=== PATIENT | female | born 1960 | race African-American/Black ===

== ENCOUNTER 2017-06-29 11:21 | Inpatient (IN) | payer BC ==
[2017-06-29 11:46] VITALS: BMI 19.3
--- NOTE | 2017-06-29 13:33 | HP ---
Admission ROS [facility] Chief Complaint: I am here for rehab for further treatment. Allergies/Adverse Reactions: Allergies Allergy/AdvReac Type Severity Reaction Status Date / Time No Known Allergies Allergy Verified 06/29/17 13:10 History of Present Illness: pt is a 56yr old female with a history of crack/cocaine dependence seeking help and wants to be in rehab. Pt states she was consulted by her counselor at her [facility]. Exam Limitations: No Limitations - Ebola screening Have you traveled outside of the country in the last 21 days: No Have you had contact with anyone from an Ebola affected area: No Have you been sick,other than usual withdrawal symptoms: No Do you have a fever: No - Review of Systems Constitutional: No Symptoms Reported EENT: reports: No Symptoms Reported Respiratory: reports: No Symptoms reported Cardiac: reports: No Symptoms Reported GI: reports: No Symptoms Reported : reports: No Symptoms Reported Musculoskeletal: reports: No Symptoms Reported Integumentary: reports: No Symptoms Reported Neuro: reports: No Symptoms reported Endocrine: reports: No Symptoms Reported Hematology: reports: No Symptoms Reported Psychiatric: reports: Judgement Intact, Mood/Affect Appropiate, Orientated x3, Agitated Other Systems: Reviewed and Negative Patient History - Patient Medical History Hx Anemia: No Hx Asthma: No Hx Chronic Obstructive Pulmonary Disease (COPD): No Hx Cancer: No Hx Cardiac Disorders: No Hx Congestive Heart Failure: No Hx Hypertension: Yes Hx Hypercholesterolemia: No Hx Pacemaker: No HX Cerebrovascular Accident: No Hx Seizures: No Hx Dementia: No Hx Diabetes: No Hx Gastrointestinal Disorders: No Hx Liver Disease: No Hx Genitourinary Disorders: No Hx Sexually Transmitted Disorders: No Hx Renal Disease (ESRD): No Hx Thyroid Disease: No Hx Human Immunodeficiency Virus (HIV): No (negative) Hx Hepatitis C: Yes (received tx in 1994) Hx Depression: Yes Hx Suicide Attempt: No Hx Bipolar Disorder: No Hx Schizophrenia: No - Patient Surgical History Past Surgical History: Yes Hx Neurologic Surgery: No Hx Cataract Extraction: No Hx Cardiac Surgery: No Hx Lung Surgery: No Hx Breast Surgery: No Hx Breast Biopsy: No Hx Abdominal Surgery: No Hx Appendectomy: No Hx Cholecystectomy: No Hx Genitourinary Surgery: No Hx Section: No Hx Orthopedic Surgery: No Other Surgical History: removal of lipoma, left buttock in 1995 - PPD History Previous Implant?: Yes Documented Results: Positive w/o proof Implanted On Prior [facility] Admission?: No PPD to be Administered?: No - Reproductive History Patient is a Female of Child Bearing Age (11 -55 yrs old): No Patient : No - Smoking Cessation Smoking history: Current every day smoker Have you smoked in the past 12 months: Yes Aproximately how many cigarettes per day: 7 Hx Chewing Tobacco Use: No Initiated information on smoking cessation: Yes 'Breaking Loose' booklet given: 06/29/17 - Substance & Tx. History Hx Alcohol Use: No Hx Substance Use: Yes Substance Use Type: Cocaine Hx Substance Use Treatment: No - Substances Abused Crack Route: Smoking Frequency: 3-6 times per week Amount used: $20 Age of first use: 44 Date of Last Use: 06/28/17 Klonopin Route: Oral Frequency: 1-2 times per week Amount used: 2 tabs Age of first use: 51 Date of Last Use: 06/28/17 Family Disease History - Family Disease History Family Disease History: Diabetes: Mother (pancreatic ca), Sister, CA: Mother Admission Physical Exam [facility] - Vital Signs Vital Signs: Vital Signs - 24 hr 06/29/17 11:43 Temperature 98.7 F Pulse Rate 61 Respiratory 18 Rate Blood Pressure 131/75 - Physical General Appearance: Yes: Appropriately Dressed, Mild Distress, Anxious HEENTM: Yes: Hearing grossly Normal, Normal Voice Respiratory: Yes: Lungs Clear, Normal Breath Sounds, No Respiratory Distress Neck: Yes: No masses,lesions,Nodules Breast: Yes: Within Normal Limits Cardiology: Yes: Regular Rhythm, Regular Rate, S1, S2 Abdominal: Yes: Normal Bowel Sounds, Non Tender, Soft Genitourinary: Yes: Within Normal Limits Back: Yes: Normal Inspection Musculoskeletal: Yes: full range of Motion, Gait Steady Extremities: Yes: Normal Capillary Refill Neurological: Yes: Fully Oriented, Alert, Normal Response Integumentary: Yes: Normal Color Lymphatic: Yes: Within Normal Limits - Diagnostic (1) Crack cocaine use Current Visit: Yes Status: Chronic (2) Nicotine dependence Current Visit: Yes Status: Chronic Qualifiers: Nicotine product type: cigarettes Substance use status: uncomplicated Qualified Code(s): F17.210 - Nicotine dependence, cigarettes, uncomplicated (3) Methadone maintenance therapy patient Current Visit: Yes Status: Chronic Cleared for Admission [facility] - Detox or Rehab [facility] Level of Care: Medically Managed Claeared for Rehab Admission: Yes [facility] Breath Alcohol Content Breath Alcohol Content: 0 Urine Pregancy Test - Result Urine Test Results: Negative- NO Line Present Urine Drug Screen - Results Drug Screen Negative: No Urine Drug Screen Results: ANTONI-Cocaine, MTD-Methadone Inpatient Rehab Admission - Initial Determination Free of communicable disease: Yes Not in need of hospitalization: Yes - Rehab Admission Criteria Lacks judgement: Yes
[2017-06-29] MEDS ORDERED: P-EPHED 60MG/TRIPROLIDI 2.5MG TABLET PO PRN (13:35)
[2017-06-29] MEDS ORDERED: hydrOXYzine PAMOATE 50 MG CAPSULE (FP) PO PRN (13:35)
[2017-06-29] MEDS ORDERED: LOPERAMIDE HCL 2 MG CAPSULE PO PRN (13:35)
[2017-06-29] MEDS ORDERED: MAGNESIUM CITRATE 300 ML BOTTLE PO PRN (13:35)
[2017-06-29] MEDS ORDERED: NICOTINE POLACRILEX 4 MG GUM BUC PRN (13:35)
[2017-06-29] MEDS ORDERED: IBUPROFEN 400 MG TABLET (FP) PO PRN (13:35)
[2017-06-29] MEDS ORDERED: guaiFENesin/D-METHORPHAN HB 10 ML UNIT-DOSE CUPS PO PRN (13:35)
[2017-06-29] MEDS ORDERED: MENTHOL/PHENOL 1 EACH UD MM PRN (13:35)
[2017-06-29] MEDS ORDERED: METHADONE HCL 10 MG TABLET PO ONE (14:37)
[2017-06-29] MEDS: THIAMINE HCL 100 MG TABLET (FP) PO SCH (21:46)
[2017-06-29 22:08] LABS: HEMATOCRIT 38.8 % (32.4-45.2); HEMOGLOBIN 13.1 GM/dL (10.7-15.3); MCH 33.3 pg (25.7-33.7); MCHC 33.7 g/dl (32.0-36.0); MEAN PLT VOLUME 8.9 fl (7.5-11.1); PLATELET COUNT 264 K/MM3 (134-434); RBC 3.92 M/mm3 (3.60-5.2); RDW 13.7 % (11.6-15.6); WHITE BLOOD COUNT 6.2 K/mm3 (4.0-10.0)
[2017-06-29 22:22] LABS: URINE APPEARANCE SLCLOUDY; URINE BILIRUBIN NEGATIVE (NEGATIVE); URINE BLOOD NEGATIVE (NEGATIVE); URINE COLOR YELLOW; URINE GLUCOSE (UA) NEGATIVE (NEGATIVE); URINE KETONE NEGATIVE (NEGATIVE); URINE LEUK ESTERASE TRACE (NEGATIVE); URINE NITRITE NEGATIVE (NEGATIVE); URINE PROTEIN NEGATIVE (NEGATIVE); URINE UROBILINOGEN NEGATIVE mg/dL (0.2-1.0)
[2017-06-29 22:26] LABS: ALBUMIN 3.8 g/dl (3.4-5.0); ALK PHOS 130 U/L (45-117); ANION GAP 8 (8-16); BILIRUBIN,TOTAL 0.3 mg/dL (0.2-1.0); BLOOD UREA NITROGEN 7 mg/dL (7-18); CALCIUM 8.8 mg/dL (8.5-10.1); CHLORIDE 103 mmol/L (98-107); CO2 31 mmol/L (21-32); CREATININE 0.8 mg/dL (0.55-1.02); GLUCOSE,RANDOM 91 mg/dL (74-106); POTASSIUM 3.6 mmol/L (3.5-5.1); SGOT/AST 26 U/L (15-37); SGPT/ALT 28 U/L (12-78); SODIUM 142 mmol/L (136-145); TOT PROT 8.2 g/dl (6.4-8.2)
[2017-06-29 23:10] LABS: EPI CELLS RARE /HPF (FEW); URINE BACTERIA RARE /hpf (NONE SEEN); URINE MUCUS RARE
[2017-06-30] MEDS: METHADONE HCL 10 MG TABLET PO SCH (06:34)
--- NOTE | 2017-06-30 09:44 | EKG ---
Test Reason : Blood Pressure : / mmHG Vent. Rate : 047 BPM Atrial Rate : 047 BPM P-R Int : 232 ms QRS Dur : 130 ms QT Int : 486 ms P-R-T Axes : 067 028 -27 degrees QTc Int : 430 ms SINUS BRADYCARDIA WITH 1ST DEGREE A-V BLOCK NON-SPECIFIC INTRA-VENTRICULAR CONDUCTION BLOCK CANNOT RULE OUT SEPTAL INFARCT , AGE UNDETERMINED T WAVE ABNORMALITY, CONSIDER INFERIOR ISCHEMIA ABNORMAL ECG NO PREVIOUS ECGS AVAILABLE Confirmed by MD Arnie, Chandler ([id number]) on 06/30/2017 9:44:10 AM Referred By: Confirmed By:Chandler Gaitan MD
[2017-06-30] MEDS: amLODIPine BESYLATE 10 MG TABLET (FP) PO SCH (10:43)
[2017-06-30] MEDS: SERTRALINE HCL 50 MG TABLET (FP) PO SCH (10:43)
[2017-06-30] MEDS: NICOTINE 21 MG/24 HOURS TOPICAL PATCH TD SCH (10:43)
[2017-06-30] MEDS: PRENATAL VITAMINS W/ FOLIC ACID TABLET (FP) PO SCH (10:44)
--- NOTE | 2017-06-30 11:48 | HP ---
Psychiatrist Admission - Data Date of interview: 06/30/17 Admission source: [facility] Identifying data: This is the first admission to [address] [place] [address] rehabilitation for this 56 yo AA single mother of 6 children,resides in [facility], supported by PA. Medical History: Significant for HTN,Hep C. Psychiatric History: Reports feeling depressed on and off for a couple of years.Patient states that she had episodes of depression mostly related to drug use.She started Zoloft 50 mg po daily a few months ago prescribed by psychiatrist while in [facility] is life [facility] in [facility]. Physical/Sexual Abuse/Trauma History: denies Vital Signs: Vital Signs - 24 hr 06/29/17 06/30/17 06/30/17 15:31 00:30 03:30 Temperature 97.7 F Pulse Rate 60 Respiratory 18 17 16 Rate Blood Pressure 136/84 06/30/17 06/30/17 07:29 09:47 Temperature 98.7 F Pulse Rate 54 L 66 Respiratory 18 Rate Blood Pressure 137/84 138/83 Allergies/Adverse Reactions: Allergies Allergy/AdvReac Type Severity Reaction Status Date / Time No Known Allergies Allergy Verified 06/29/17 13:10 Date of last physical exam: 06/29/17 Concur with the findings of this exam: Yes - Substance Abuse/Tx History Hx Alcohol Use: Yes (drinking socially) Hx Substance Use: Yes (cocaine/crack since [age] yo$20 2 times a week,Benzo since 51 yo) Substance Use Type: Cocaine, Heroin, Tranquilizers Hx Substance Use Treatment: Yes (completed [facility] 4 yo,longest abstinence 3 years) Mental Status Exam - Mental Status Exam Alert and Oriented to: Time, Place, Person Cognitive Function: Grossly Intact Patient Appearance: Well Groomed Mood: Anxious Affect: Mood Congruent, Labile Patient Behavior: Cooperative Speech Pattern: Clear Voice Loudness: Normal Thought Process: Goal Oriented Thought Disorder: Not Present Hallucinations: Denies Suicidal Ideation: Denies Homicidal Ideation: Denies Insight/Judgement: Fair Sleep: Fair Appetite: Good Muscle strength/Tone: Normal Gait/Station: Normal Psychiatric Findings - Problem List ([place] 1, 2,3) (1) Crack cocaine use Current Visit: Yes Status: Chronic (2) Nicotine dependence Current Visit: Yes Status: Chronic Qualifiers: Nicotine product type: cigarettes Substance use status: uncomplicated Qualified Code(s): F17.210 - Nicotine dependence, cigarettes, uncomplicated (3) Methadone maintenance therapy patient Current Visit: Yes Status: Chronic (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
[2017-06-30] MEDS: THIAMINE HCL 100 MG TABLET (FP) PO SCH (21:35)
[2017-07-01] MEDS: METHADONE HCL 10 MG TABLET PO SCH (06:17)
[2017-07-01] MEDS: ACETAMINOPHEN 325 MG TABLET (FP) PO PRN ×2 (08:49→21:32)
[2017-07-01] MEDS: amLODIPine BESYLATE 10 MG TABLET (FP) PO SCH (10:11)
[2017-07-01] MEDS: PRENATAL VITAMINS W/ FOLIC ACID TABLET (FP) PO SCH (10:11)
[2017-07-01] MEDS: SERTRALINE HCL 50 MG TABLET (FP) PO SCH (10:11)
[2017-07-01] MEDS: NICOTINE 21 MG/24 HOURS TOPICAL PATCH TD SCH (10:11)
[2017-07-01] MEDS: THIAMINE HCL 100 MG TABLET (FP) PO SCH (21:31)
[2017-07-02] MEDS: METHADONE HCL 10 MG TABLET PO SCH (06:41)
--- NOTE | 2017-07-02 10:06 | PN ---
[facility] Progress Note (SOAP) Subjective: c/o right shoulder pain radiating to hand 2/2 arthritis, chronic neurontineffective, can not take nsaids Objective: 07/02/17 10:05 Vital Signs - 24 hr 07/02/17 07/02/17 07/02/17 03:30 07:43 09:54 Temperature 98.0 F Pulse Rate 68 48 L Respiratory 16 18 Rate Blood Pressure 162/84 153/93 Laboratory Tests 06/29/17 06/29/17 06/29/17 14:00 14:00 14:00 WBC 6.2 RBC 3.92 Hgb 13.1 Hct 38.8 MCV 99.0 H MCH 33.3 MCHC 33.7 RDW 13.7 Plt Count 264 MPV 8.9 Sodium 142 Potassium 3.6 Chloride 103 Carbon Dioxide 31 Anion Gap 8 BUN 7 Creatinine 0.8 Creat Clearance w eGFR > 60 Random Glucose 91 Calcium 8.8 Total Bilirubin 0.3 AST 26 ALT 28 Alkaline Phosphatase 130 H Total Protein 8.2 Albumin 3.8 Urine Color Urine Appearance Urine pH Ur Specific [place] Urine Protein Urine Glucose (UA) Urine Ketones Urine Blood Urine Nitrite Urine Bilirubin Urine Urobilinogen Ur Leukocyte Esterase Urine WBC (Auto) Urine RBC (Auto) Ur Epithelial Cells Urine Bacteria Urine Mucus RPR Titer Nonreactive 06/29/17 15:45 WBC RBC Hgb Hct MCV MCH MCHC RDW Plt Count MPV Sodium Potassium Chloride Carbon Dioxide Anion Gap BUN Creatinine Creat Clearance w eGFR Random Glucose Calcium Total Bilirubin AST ALT Alkaline Phosphatase Total Protein Albumin Urine Color Yellow Urine Appearance Slcloudy Urine pH 7.0 Ur Specific [place] 1.008 Urine Protein Negative Urine Glucose (UA) Negative Urine Ketones Negative Urine Blood Negative Urine Nitrite Negative Urine Bilirubin Negative Urine Urobilinogen Negative Ur Leukocyte Esterase Negative Urine WBC (Auto) <1 Urine RBC (Auto) None Ur Epithelial Cells Rare Urine Bacteria Rare Urine Mucus Rare RPR Titer Assessment: 07/02/17 10:05 start neurontin 100mg tid, titrate upwards to effect.
[2017-07-02] MEDS: amLODIPine BESYLATE 10 MG TABLET (FP) PO SCH (10:30)
[2017-07-02] MEDS: NICOTINE 21 MG/24 HOURS TOPICAL PATCH TD SCH (10:30)
[2017-07-02] MEDS: SERTRALINE HCL 50 MG TABLET (FP) PO SCH (10:30)
[2017-07-02] MEDS: PRENATAL VITAMINS W/ FOLIC ACID TABLET (FP) PO SCH (10:30)
[2017-07-02] MEDS: GABAPENTIN 100 MG CAPSULE (FP) PO SCH ×2 (13:57→21:43)
[2017-07-02] MEDS: THIAMINE HCL 100 MG TABLET (FP) PO SCH (21:43)
[2017-07-03] MEDS: METHADONE HCL 10 MG TABLET PO SCH (06:39)
[2017-07-03] MEDS: GABAPENTIN 100 MG CAPSULE (FP) PO SCH ×3 (06:39→21:44)
[2017-07-03] MEDS: PRENATAL VITAMINS W/ FOLIC ACID TABLET (FP) PO SCH (10:18)
[2017-07-03] MEDS: SERTRALINE HCL 50 MG TABLET (FP) PO SCH (10:18)
[2017-07-03] MEDS: amLODIPine BESYLATE 10 MG TABLET (FP) PO SCH (10:19)
[2017-07-03] MEDS: NICOTINE 21 MG/24 HOURS TOPICAL PATCH TD SCH (10:19)
[2017-07-03] MEDS: MAGNESIUM HYDROX 2400MG/30ML ORAL SUSPENSION 30 ML CUP PO PRN (16:26)
[2017-07-03] MEDS: THIAMINE HCL 100 MG TABLET (FP) PO SCH (21:44)
[2017-07-04] MEDS: METHADONE HCL 10 MG TABLET PO SCH (06:44)
[2017-07-04] MEDS: GABAPENTIN 100 MG CAPSULE (FP) PO SCH ×3 (06:45→21:33)
[2017-07-04] MEDS: NICOTINE 21 MG/24 HOURS TOPICAL PATCH TD SCH (10:04)
[2017-07-04] MEDS: PRENATAL VITAMINS W/ FOLIC ACID TABLET (FP) PO SCH (10:05)
[2017-07-04] MEDS: SERTRALINE HCL 50 MG TABLET (FP) PO SCH (10:05)
[2017-07-04] MEDS: amLODIPine BESYLATE 10 MG TABLET (FP) PO SCH (10:05)
[2017-07-04] MEDS: THIAMINE HCL 100 MG TABLET (FP) PO SCH (21:33)
[2017-07-05] MEDS: METHADONE HCL 10 MG TABLET PO SCH (06:20)
[2017-07-05] MEDS: GABAPENTIN 100 MG CAPSULE (FP) PO SCH ×3 (07:03→21:43)
[2017-07-05] MEDS: NICOTINE 21 MG/24 HOURS TOPICAL PATCH TD SCH (10:24)
[2017-07-05] MEDS: PRENATAL VITAMINS W/ FOLIC ACID TABLET (FP) PO SCH (10:24)
[2017-07-05] MEDS: amLODIPine BESYLATE 10 MG TABLET (FP) PO SCH (10:24)
[2017-07-05] MEDS: SERTRALINE HCL 50 MG TABLET (FP) PO SCH (10:24)
[2017-07-05] MEDS: MAGNESIUM HYDROX 2400MG/30ML ORAL SUSPENSION 30 ML CUP PO PRN (10:44)
[2017-07-05] MEDS ORDERED: PT OWN MED DRAWER 7, Y5N ONE (13:33)
[2017-07-05] MEDS: THIAMINE HCL 100 MG TABLET (FP) PO SCH (21:43)
[2017-07-06] MEDS: METHADONE HCL 10 MG TABLET PO SCH (06:25)
[2017-07-06] MEDS: GABAPENTIN 100 MG CAPSULE (FP) PO SCH ×3 (06:26→21:35)
[2017-07-06] MEDS: SERTRALINE HCL 50 MG TABLET (FP) PO SCH (10:36)
[2017-07-06] MEDS: NICOTINE 21 MG/24 HOURS TOPICAL PATCH TD SCH (10:36)
[2017-07-06] MEDS: amLODIPine BESYLATE 10 MG TABLET (FP) PO SCH (10:36)
[2017-07-06] MEDS: PRENATAL VITAMINS W/ FOLIC ACID TABLET (FP) PO SCH (10:36)
[2017-07-06] MEDS: THIAMINE HCL 100 MG TABLET (FP) PO SCH (21:35)
[2017-07-07] MEDS: METHADONE HCL 10 MG TABLET PO SCH (06:40)
[2017-07-07] MEDS: GABAPENTIN 100 MG CAPSULE (FP) PO SCH ×3 (06:41→21:38)
[2017-07-07] MEDS: PRENATAL VITAMINS W/ FOLIC ACID TABLET (FP) PO SCH (10:24)
[2017-07-07] MEDS: SERTRALINE HCL 50 MG TABLET (FP) PO SCH (10:24)
[2017-07-07] MEDS: amLODIPine BESYLATE 10 MG TABLET (FP) PO SCH (10:24)
[2017-07-07] MEDS: NICOTINE 21 MG/24 HOURS TOPICAL PATCH TD SCH (10:25)
[2017-07-07] MEDS: THIAMINE HCL 100 MG TABLET (FP) PO SCH (21:38)
[2017-07-08] MEDS: METHADONE HCL 10 MG TABLET PO SCH (06:47)
[2017-07-08] MEDS: GABAPENTIN 100 MG CAPSULE (FP) PO SCH ×3 (06:48→21:29)
[2017-07-08] MEDS: SERTRALINE HCL 50 MG TABLET (FP) PO SCH (10:21)
[2017-07-08] MEDS: PRENATAL VITAMINS W/ FOLIC ACID TABLET (FP) PO SCH (10:21)
[2017-07-08] MEDS: NICOTINE 21 MG/24 HOURS TOPICAL PATCH TD SCH (10:22)
[2017-07-08] MEDS: amLODIPine BESYLATE 10 MG TABLET (FP) PO SCH (10:22)
[2017-07-08] MEDS: THIAMINE HCL 100 MG TABLET (FP) PO SCH (21:29)
[2017-07-09] MEDS: GABAPENTIN 100 MG CAPSULE (FP) PO SCH (06:47)
[2017-07-09] MEDS: METHADONE HCL 10 MG TABLET PO SCH (06:47)
[2017-07-09] MEDS: SERTRALINE HCL 50 MG TABLET (FP) PO SCH (09:29)
[2017-07-09] MEDS: NICOTINE 21 MG/24 HOURS TOPICAL PATCH TD SCH (09:29)
[2017-07-09] MEDS: PRENATAL VITAMINS W/ FOLIC ACID TABLET (FP) PO SCH (09:29)
[2017-07-09] MEDS: amLODIPine BESYLATE 10 MG TABLET (FP) PO SCH (09:29)
[2017-07-09] MEDS: CYCLOBENZAPRINE HCL 5 MG TABLET PO SCH ×2 (13:05→21:29)
[2017-07-09] MEDS: GABAPENTIN 300 MG CAPSULE (FP) PO SCH ×2 (13:05→21:29)
[2017-07-09] MEDS: THIAMINE HCL 100 MG TABLET (FP) PO SCH (21:29)
[2017-07-10] MEDS: CYCLOBENZAPRINE HCL 5 MG TABLET PO SCH ×3 (07:03→21:27)
[2017-07-10] MEDS: GABAPENTIN 300 MG CAPSULE (FP) PO SCH ×3 (07:03→21:27)
[2017-07-10] MEDS: METHADONE HCL 10 MG TABLET PO SCH (07:03)
[2017-07-10] MEDS: PRENATAL VITAMINS W/ FOLIC ACID TABLET (FP) PO SCH (10:26)
[2017-07-10] MEDS: SERTRALINE HCL 50 MG TABLET (FP) PO SCH (10:26)
[2017-07-10] MEDS: NICOTINE 21 MG/24 HOURS TOPICAL PATCH TD SCH (10:26)
[2017-07-10] MEDS: amLODIPine BESYLATE 10 MG TABLET (FP) PO SCH (10:26)
[2017-07-10] MEDS: THIAMINE HCL 100 MG TABLET (FP) PO SCH (21:27)
[2017-07-11] MEDS: METHADONE HCL 10 MG TABLET PO SCH (06:49)
[2017-07-11] MEDS: GABAPENTIN 300 MG CAPSULE (FP) PO SCH ×3 (06:50→21:40)
[2017-07-11] MEDS: CYCLOBENZAPRINE HCL 5 MG TABLET PO SCH ×3 (06:50→21:40)
[2017-07-11] MEDS: PRENATAL VITAMINS W/ FOLIC ACID TABLET (FP) PO SCH (09:59)
[2017-07-11] MEDS: SERTRALINE HCL 50 MG TABLET (FP) PO SCH (09:59)
[2017-07-11] MEDS: amLODIPine BESYLATE 10 MG TABLET (FP) PO SCH (09:59)
[2017-07-11] MEDS: NICOTINE 21 MG/24 HOURS TOPICAL PATCH TD SCH (09:59)
[2017-07-11] MEDS: THIAMINE HCL 100 MG TABLET (FP) PO SCH (21:40)
[2017-07-12] MEDS: METHADONE HCL 10 MG TABLET PO SCH (06:46)
[2017-07-12] MEDS: GABAPENTIN 300 MG CAPSULE (FP) PO SCH ×3 (06:47→21:36)
[2017-07-12] MEDS: CYCLOBENZAPRINE HCL 5 MG TABLET PO SCH ×3 (06:47→21:36)
[2017-07-12] MEDS: NICOTINE 21 MG/24 HOURS TOPICAL PATCH TD SCH (09:48)
[2017-07-12] MEDS: amLODIPine BESYLATE 10 MG TABLET (FP) PO SCH (09:48)
[2017-07-12] MEDS: PRENATAL VITAMINS W/ FOLIC ACID TABLET (FP) PO SCH (09:48)
[2017-07-12] MEDS: SERTRALINE HCL 50 MG TABLET (FP) PO SCH (09:48)
[2017-07-12] MEDS: MAG HYDROX/AL HYDROX/SIMETH 30 ML UNIT-DOSE CUP PO PRN ×2 (11:56→21:43)
[2017-07-12] MEDS: THIAMINE HCL 100 MG TABLET (FP) PO SCH (21:36)
[2017-07-13] MEDS ORDERED: METHADONE HCL 10 MG TABLET PO SCH (06:00)
[2017-07-13] MEDS: GABAPENTIN 300 MG CAPSULE (FP) PO SCH ×2 (06:46→13:27)
[2017-07-13] MEDS: CYCLOBENZAPRINE HCL 5 MG TABLET PO SCH ×2 (06:46→13:27)
[2017-07-13 07:31] VITALS: TEMP 97.8
[2017-07-13 09:24] VITALS: BP 100/72; PULSE 75
[2017-07-13] MEDS: NICOTINE 21 MG/24 HOURS TOPICAL PATCH TD SCH (10:11)
[2017-07-13] MEDS: SERTRALINE HCL 50 MG TABLET (FP) PO SCH (10:11)
[2017-07-13] MEDS: PRENATAL VITAMINS W/ FOLIC ACID TABLET (FP) PO SCH (10:11)
[2017-07-13] MEDS: amLODIPine BESYLATE 10 MG TABLET (FP) PO SCH (10:11)
--- NOTE | 2017-07-13 14:14 | PN ---
[facility] Progress Note Note: Informed by nursing staff that patient wants to leave today instead of tomorrow which is her scheduled discharge date. Reportedly she is stable for discharge. Discharge order place and Script for 30 days of Zoloft 50 mg po daily electronically transferred to [facility] at [address] [place] [id number]
== END 2017-07-13 14:42 | disposition home or self-care (01) | DRG 772 ==
LOC: YASAS 11:21 → Y3E 13:57
PROVIDERS: ADMIT Internal Medicine; ATTEND Psychiatry & Neurology Psychiatry
PROC: HZ42ZZZ Group Counseling for Substance Abuse Treatment, Cognitive-Behavioral (ICD-10-PCS; principal; 2017-06-29)
DX: F13.20 Sedative, hypnotic or anxiolytic dependence, uncomplicated (principal); F11.20 Opioid dependence, uncomplicated; F14.90 Cocaine use, unspecified, uncomplicated; F19.24 Other psychoactive substance dependence with psychoactive substance-induced mood disorder; M13.811 Other specified arthritis, right shoulder; G89.29 Other chronic pain; I10 Essential (primary) hypertension; B18.2 Chronic viral hepatitis C
CPT/HCPCS: 36415; 71046-TC; 80053; 81003; 81015; 85027; 86593; 93005; 93010

== ENCOUNTER 2020-09-25 12:14 | Inpatient (IN) | payer BC ==
[2020-09-25 15:37] VITALS: BMI 18.3
[2020-09-25] MEDS ORDERED: LOPERAMIDE HCL 2 MG CAPSULE PO PRN (16:34)
[2020-09-25] MEDS ORDERED: MAGNESIUM CITRATE 300 ML BOTTLE PO PRN (16:34)
[2020-09-25] MEDS ORDERED: IBUPROFEN 400 MG TABLET (FP) PO PRN (16:34)
[2020-09-25] MEDS ORDERED: P-EPHED 60MG/TRIPROLIDI 2.5MG TABLET PO PRN (16:34)
[2020-09-25] MEDS ORDERED: guaiFENesin 200 MG/10 ML 10 ML UNIT-DOSE CUPS PO PRN (16:34)
[2020-09-25] MEDS ORDERED: ACETAMINOPHEN 325 MG TABLET (FP) PO PRN (16:34)
[2020-09-25] MEDS ORDERED: MAGNESIUM HYDROX 2400MG/30ML ORAL SUSPENSION 30 ML CUP PO PRN (16:34)
[2020-09-25] MEDS ORDERED: NICOTINE POLACRILEX 2 MG GUM BC PRN (16:34)
[2020-09-25] MEDS ORDERED: MAG HYDROX/AL HYDROX/SIMETH 30 ML UNIT-DOSE CUP PO PRN (16:34)
[2020-09-25] MEDS ORDERED: hydrOXYzine PAMOATE 25 MG CAPSULE (FP) PO SCH (18:00)
[2020-09-25] MEDS: NICOTINE 14 MG/24 HOURS TOPICAL PATCH TD SCH (18:07)
[2020-09-25] MEDS: MELATONIN 5 MG TABLETS PO SCH (22:02)
[2020-09-25] MEDS: THIAMINE HCL 100 MG TABLET (FP) PO SCH (22:02)
[2020-09-25] MEDS: GABAPENTIN 300 MG CAPSULE PO SCH (22:04)
[2020-09-26] MEDS ORDERED: METHADONE HCL 10 MG TABLET PO SCH (07:30)
[2020-09-26] MEDS ORDERED: METHADONE HCL 40 MG DISPERSABLE TABLET ONE (07:43)
[2020-09-26] MEDS ORDERED: METHADONE HCL 10 MG TABLET ONE (07:43)
[2020-09-26] MEDS: METHADONE 80 MG, METHADONE 20 MG PO SCH (07:51)
[2020-09-26] MEDS ORDERED: NICOTINE 7 MG/24 HOURS TOPICAL PATCH TD SCH (10:00)
[2020-09-26 10:34] LABS: HEMATOCRIT 36.9 % (32.4-45.2); HEMOGLOBIN 12.5 GM/dL (10.7-15.3); MCH 34.5 pg (25.7-33.7); MEAN CELL VOLUME 101.6 fl (80-96); MEAN PLT VOLUME 9.9 fl (7.5-11.1); PLATELET COUNT 220 K/MM3 (134-434); RBC 3.64 M/mm3 (3.60-5.2); RDW 14.6 % (11.6-15.6); WHITE BLOOD COUNT 4.6 K/mm3 (4.0-10.0)
[2020-09-26] MEDS: PANTOPRAZOLE 20 MG TABLET PO SCH (10:41)
[2020-09-26] MEDS: ASPIRIN 81 MG CHEWABLE TABLETS PO SCH (10:41)
[2020-09-26] MEDS: amLODIPine BESYLATE 10 MG TABLET (FP) PO SCH (10:41)
[2020-09-26] MEDS: PRENATAL VITAMINS W/ FOLIC ACID TABLET (FP) PO SCH (10:41)
[2020-09-26] MEDS: NICOTINE 14 MG/24 HOURS TOPICAL PATCH TD SCH (10:41)
[2020-09-26 10:46] LABS: ALBUMIN 3.1 g/dl (3.4-5.0); BLOOD UREA NITROGEN 24.3 mg/dL (7-18); CALCIUM 9.2 mg/dL (8.5-10.1)
[2020-09-26 10:49] LABS: CREATININE 0.9 mg/dL (0.55-1.3)
[2020-09-26 10:51] LABS: TOT PROT 6.9 g/dl (6.4-8.2)
[2020-09-26 10:54] LABS: BILIRUBIN,TOTAL 0.3 mg/dL (0.2-1)
[2020-09-26] MEDS: GABAPENTIN 300 MG CAPSULE PO SCH (21:30)
[2020-09-26] MEDS: THIAMINE HCL 100 MG TABLET (FP) PO SCH (21:31)
[2020-09-26] MEDS: MELATONIN 5 MG TABLETS PO SCH (21:31)
[2020-09-27] MEDS ORDERED: METHADONE HCL 10 MG TABLET ONE (03:31)
[2020-09-27] MEDS ORDERED: METHADONE HCL 40 MG DISPERSABLE TABLET ONE (03:31)
[2020-09-27] MEDS: METHADONE 80 MG, METHADONE 20 MG PO SCH (06:11)
[2020-09-27] MEDS: PRENATAL VITAMINS W/ FOLIC ACID TABLET (FP) PO SCH (09:58)
[2020-09-27] MEDS: amLODIPine BESYLATE 10 MG TABLET (FP) PO SCH (09:59)
[2020-09-27] MEDS: ASPIRIN 81 MG CHEWABLE TABLETS PO SCH (09:59)
[2020-09-27] MEDS: SERTRALINE HCL 50 MG TABLET (FP) PO SCH (09:59)
[2020-09-27] MEDS: NICOTINE 14 MG/24 HOURS TOPICAL PATCH TD SCH (10:00)
[2020-09-27] MEDS: PANTOPRAZOLE 20 MG TABLET PO SCH (10:00)
[2020-09-27] MEDS: GABAPENTIN 300 MG CAPSULE PO SCH (21:39)
[2020-09-27] MEDS: MELATONIN 5 MG TABLETS PO SCH (21:39)
[2020-09-27] MEDS: THIAMINE HCL 100 MG TABLET (FP) PO SCH (21:39)
[2020-09-28] MEDS ORDERED: METHADONE HCL 40 MG DISPERSABLE TABLET ONE (03:29)
[2020-09-28] MEDS ORDERED: METHADONE HCL 10 MG TABLET ONE (03:29)
[2020-09-28] MEDS: METHADONE 80 MG, METHADONE 20 MG PO SCH (06:25)
[2020-09-28] MEDS: ASPIRIN 81 MG CHEWABLE TABLETS PO SCH (11:55)
[2020-09-28] MEDS: NICOTINE 14 MG/24 HOURS TOPICAL PATCH TD SCH (11:55)
[2020-09-28] MEDS: amLODIPine BESYLATE 10 MG TABLET (FP) PO SCH (11:56)
[2020-09-28] MEDS: PANTOPRAZOLE 20 MG TABLET PO SCH (11:57)
[2020-09-28] MEDS: PRENATAL VITAMINS W/ FOLIC ACID TABLET (FP) PO SCH (11:57)
[2020-09-28] MEDS: SERTRALINE HCL 50 MG TABLET (FP) PO SCH (11:58)
[2020-09-28 16:23] LABS: PH,URINE 5.5 (5.0-8.0); URINE APPEARANCE CLEAR; URINE BILIRUBIN NEGATIVE (NEGATIVE); URINE COLOR YELLOW; URINE GLUCOSE (UA) NEGATIVE (NEGATIVE); URINE KETONE NEGATIVE (NEGATIVE); URINE LEUK ESTERASE NEGATIVE (NEGATIVE); URINE NITRITE NEGATIVE (NEGATIVE); URINE PROTEIN NEGATIVE (NEGATIVE)
[2020-09-28] MEDS: THIAMINE HCL 100 MG TABLET (FP) PO SCH (21:35)
[2020-09-28] MEDS: GABAPENTIN 300 MG CAPSULE PO SCH (21:35)
[2020-09-28] MEDS: MELATONIN 5 MG TABLETS PO SCH (21:36)
[2020-09-29] MEDS ORDERED: METHADONE HCL 40 MG DISPERSABLE TABLET ONE (05:27)
[2020-09-29] MEDS ORDERED: METHADONE HCL 10 MG TABLET ONE (05:27)
[2020-09-29] MEDS: METHADONE 80 MG, METHADONE 20 MG PO SCH (06:09)
[2020-09-29] MEDS: PRENATAL VITAMINS W/ FOLIC ACID TABLET (FP) PO SCH (10:02)
[2020-09-29] MEDS: SERTRALINE HCL 50 MG TABLET (FP) PO SCH (10:02)
[2020-09-29] MEDS: ASPIRIN 81 MG CHEWABLE TABLETS PO SCH (10:02)
[2020-09-29] MEDS: NICOTINE 14 MG/24 HOURS TOPICAL PATCH TD SCH (10:03)
[2020-09-29] MEDS: PANTOPRAZOLE 20 MG TABLET PO SCH (10:03)
[2020-09-29] MEDS: amLODIPine BESYLATE 10 MG TABLET (FP) PO SCH (10:03)
[2020-09-29] MEDS: busPIRone HCL 5 MG TABLET PO PRN (10:05)
[2020-09-29] MEDS: GABAPENTIN 300 MG CAPSULE PO SCH (21:03)
[2020-09-29] MEDS: THIAMINE HCL 100 MG TABLET (FP) PO SCH (21:03)
[2020-09-29] MEDS: MELATONIN 5 MG TABLETS PO SCH (21:03)
[2020-09-30] MEDS ORDERED: METHADONE HCL 10 MG TABLET ONE (03:23)
[2020-09-30] MEDS ORDERED: METHADONE HCL 40 MG DISPERSABLE TABLET ONE (03:24)
[2020-09-30] MEDS: METHADONE 80 MG, METHADONE 20 MG PO SCH (06:16)
[2020-09-30] MEDS: busPIRone HCL 5 MG TABLET PO PRN ×2 (06:16→21:11)
[2020-09-30] MEDS: PRENATAL VITAMINS W/ FOLIC ACID TABLET (FP) PO SCH (10:24)
[2020-09-30] MEDS: PANTOPRAZOLE 20 MG TABLET PO SCH (10:25)
[2020-09-30] MEDS: ASPIRIN 81 MG CHEWABLE TABLETS PO SCH (10:25)
[2020-09-30] MEDS: amLODIPine BESYLATE 10 MG TABLET (FP) PO SCH (10:25)
[2020-09-30] MEDS: NICOTINE 14 MG/24 HOURS TOPICAL PATCH TD SCH (10:25)
[2020-09-30] MEDS: SERTRALINE HCL 50 MG TABLET (FP) PO SCH (10:26)
[2020-09-30] MEDS: THIAMINE HCL 100 MG TABLET (FP) PO SCH (21:10)
[2020-09-30] MEDS: MELATONIN 5 MG TABLETS PO SCH (21:11)
[2020-09-30] MEDS: GABAPENTIN 300 MG CAPSULE PO SCH (21:11)
[2020-10-01] MEDS ORDERED: METHADONE HCL 10 MG TABLET ONE (03:42)
[2020-10-01] MEDS ORDERED: METHADONE HCL 40 MG DISPERSABLE TABLET ONE (03:42)
[2020-10-01] MEDS: busPIRone HCL 5 MG TABLET PO PRN (06:09)
[2020-10-01] MEDS: METHADONE 80 MG, METHADONE 20 MG PO SCH (06:10)
[2020-10-01] MEDS: ASPIRIN 81 MG CHEWABLE TABLETS PO SCH (09:52)
[2020-10-01] MEDS: PRENATAL VITAMINS W/ FOLIC ACID TABLET (FP) PO SCH (09:52)
[2020-10-01] MEDS: amLODIPine BESYLATE 10 MG TABLET (FP) PO SCH (09:52)
[2020-10-01] MEDS: PANTOPRAZOLE 20 MG TABLET PO SCH (09:53)
[2020-10-01] MEDS: NICOTINE 14 MG/24 HOURS TOPICAL PATCH TD SCH (09:53)
[2020-10-01] MEDS: SERTRALINE HCL 50 MG TABLET (FP) PO SCH (09:53)
[2020-10-01] MEDS: MELATONIN 5 MG TABLETS PO SCH (21:11)
[2020-10-01] MEDS: THIAMINE HCL 100 MG TABLET (FP) PO SCH (21:11)
[2020-10-01] MEDS: GABAPENTIN 300 MG CAPSULE PO SCH (21:12)
[2020-10-02] MEDS ORDERED: METHADONE HCL 10 MG TABLET ONE (05:14)
[2020-10-02] MEDS ORDERED: METHADONE HCL 40 MG DISPERSABLE TABLET ONE (05:16)
[2020-10-02] MEDS: METHADONE 80 MG, METHADONE 20 MG PO SCH (06:40)
[2020-10-02] MEDS: ASPIRIN 81 MG CHEWABLE TABLETS PO SCH (10:00)
[2020-10-02] MEDS: amLODIPine BESYLATE 10 MG TABLET (FP) PO SCH (10:00)
[2020-10-02] MEDS: SERTRALINE HCL 50 MG TABLET (FP) PO SCH (10:00)
[2020-10-02] MEDS: PANTOPRAZOLE 20 MG TABLET PO SCH (10:01)
[2020-10-02] MEDS: PRENATAL VITAMINS W/ FOLIC ACID TABLET (FP) PO SCH (10:01)
[2020-10-02] MEDS: NICOTINE 14 MG/24 HOURS TOPICAL PATCH TD SCH (10:01)
[2020-10-02] MEDS: THIAMINE HCL 100 MG TABLET (FP) PO SCH (21:12)
[2020-10-02] MEDS: MELATONIN 5 MG TABLETS PO SCH (21:12)
[2020-10-02] MEDS: busPIRone HCL 5 MG TABLET PO PRN (21:13)
[2020-10-02] MEDS: GABAPENTIN 300 MG CAPSULE PO SCH (21:13)
[2020-10-03] MEDS ORDERED: METHADONE HCL 10 MG TABLET ONE (06:01)
[2020-10-03] MEDS ORDERED: METHADONE HCL 40 MG DISPERSABLE TABLET ONE (06:01)
[2020-10-03] MEDS: METHADONE 80 MG, METHADONE 20 MG PO SCH (06:11)
[2020-10-03] MEDS: NICOTINE 14 MG/24 HOURS TOPICAL PATCH TD SCH (09:56)
[2020-10-03] MEDS: PRENATAL VITAMINS W/ FOLIC ACID TABLET (FP) PO SCH (09:56)
[2020-10-03] MEDS: ASPIRIN 81 MG CHEWABLE TABLETS PO SCH (09:57)
[2020-10-03] MEDS: SERTRALINE HCL 50 MG TABLET (FP) PO SCH (09:57)
[2020-10-03] MEDS: PANTOPRAZOLE 20 MG TABLET PO SCH (09:57)
[2020-10-03] MEDS: amLODIPine BESYLATE 10 MG TABLET (FP) PO SCH (09:57)
[2020-10-03] MEDS: busPIRone HCL 5 MG TABLET PO PRN ×2 (09:58→21:05)
[2020-10-03] MEDS: MELATONIN 5 MG TABLETS PO SCH (21:04)
[2020-10-03] MEDS: THIAMINE HCL 100 MG TABLET (FP) PO SCH (21:04)
[2020-10-03] MEDS: GABAPENTIN 300 MG CAPSULE PO SCH (21:04)
[2020-10-04] MEDS ORDERED: METHADONE HCL 10 MG TABLET ONE (03:43)
[2020-10-04] MEDS ORDERED: METHADONE HCL 40 MG DISPERSABLE TABLET ONE (03:43)
[2020-10-04] MEDS: busPIRone HCL 5 MG TABLET PO PRN (06:23)
[2020-10-04] MEDS: METHADONE 80 MG, METHADONE 20 MG PO SCH (06:23)
[2020-10-04] MEDS: PRENATAL VITAMINS W/ FOLIC ACID TABLET (FP) PO SCH (10:00)
[2020-10-04] MEDS: SERTRALINE HCL 50 MG TABLET (FP) PO SCH (10:00)
[2020-10-04] MEDS: NICOTINE 14 MG/24 HOURS TOPICAL PATCH TD SCH (10:00)
[2020-10-04] MEDS: amLODIPine BESYLATE 10 MG TABLET (FP) PO SCH (10:00)
[2020-10-04] MEDS: ASPIRIN 81 MG CHEWABLE TABLETS PO SCH (10:00)
[2020-10-04] MEDS: PANTOPRAZOLE 20 MG TABLET PO SCH (10:00)
[2020-10-04] MEDS ORDERED: PT OWN MED DRAWER 7, Y5N ONE (10:17)
[2020-10-04] MEDS: GABAPENTIN 300 MG CAPSULE PO SCH (21:01)
[2020-10-04] MEDS: THIAMINE HCL 100 MG TABLET (FP) PO SCH (21:01)
[2020-10-04] MEDS: MELATONIN 5 MG TABLETS PO SCH (21:01)
[2020-10-05] MEDS ORDERED: METHADONE HCL 10 MG TABLET ONE (03:26)
[2020-10-05] MEDS ORDERED: METHADONE HCL 40 MG DISPERSABLE TABLET ONE (03:27)
[2020-10-05] MEDS: METHADONE 80 MG, METHADONE 20 MG PO SCH (06:15)
[2020-10-05] MEDS: busPIRone HCL 5 MG TABLET PO PRN (06:15)
[2020-10-05] MEDS: ASPIRIN 81 MG CHEWABLE TABLETS PO SCH (09:52)
[2020-10-05] MEDS: SERTRALINE HCL 50 MG TABLET (FP) PO SCH (09:52)
[2020-10-05] MEDS: PRENATAL VITAMINS W/ FOLIC ACID TABLET (FP) PO SCH (09:52)
[2020-10-05] MEDS: amLODIPine BESYLATE 10 MG TABLET (FP) PO SCH (09:52)
[2020-10-05] MEDS: PANTOPRAZOLE 20 MG TABLET PO SCH (09:53)
[2020-10-05] MEDS: NICOTINE 14 MG/24 HOURS TOPICAL PATCH TD SCH (09:53)
[2020-10-05] MEDS: THIAMINE HCL 100 MG TABLET (FP) PO SCH (21:40)
[2020-10-05] MEDS: MELATONIN 5 MG TABLETS PO SCH (21:41)
[2020-10-05] MEDS: GABAPENTIN 300 MG CAPSULE PO SCH (21:41)
[2020-10-06] MEDS ORDERED: METHADONE HCL 40 MG DISPERSABLE TABLET ONE (03:56)
[2020-10-06] MEDS ORDERED: METHADONE HCL 10 MG TABLET ONE (03:56)
[2020-10-06] MEDS: busPIRone HCL 5 MG TABLET PO PRN (06:23)
[2020-10-06] MEDS: METHADONE 80 MG, METHADONE 20 MG PO SCH (06:23)
[2020-10-06] MEDS: SERTRALINE HCL 50 MG TABLET (FP) PO SCH (09:43)
[2020-10-06] MEDS: PRENATAL VITAMINS W/ FOLIC ACID TABLET (FP) PO SCH (09:43)
[2020-10-06] MEDS: amLODIPine BESYLATE 10 MG TABLET (FP) PO SCH (09:43)
[2020-10-06] MEDS: ASPIRIN 81 MG CHEWABLE TABLETS PO SCH (09:43)
[2020-10-06] MEDS: NICOTINE 14 MG/24 HOURS TOPICAL PATCH TD SCH (09:44)
[2020-10-06] MEDS: PANTOPRAZOLE 20 MG TABLET PO SCH (09:44)
[2020-10-06] MEDS: THIAMINE HCL 100 MG TABLET (FP) PO SCH (21:30)
[2020-10-06] MEDS: GABAPENTIN 300 MG CAPSULE PO SCH (21:30)
[2020-10-06] MEDS: MELATONIN 5 MG TABLETS PO SCH (21:30)
[2020-10-07] MEDS ORDERED: METHADONE HCL 10 MG TABLET ONE (03:26)
[2020-10-07] MEDS ORDERED: METHADONE HCL 40 MG DISPERSABLE TABLET ONE (03:26)
[2020-10-07] MEDS: METHADONE 80 MG, METHADONE 20 MG PO SCH (06:23)
[2020-10-07] MEDS: ASPIRIN 81 MG CHEWABLE TABLETS PO SCH (10:18)
[2020-10-07] MEDS: amLODIPine BESYLATE 10 MG TABLET (FP) PO SCH (10:18)
[2020-10-07] MEDS: busPIRone HCL 5 MG TABLET PO PRN (10:19)
[2020-10-07] MEDS: PRENATAL VITAMINS W/ FOLIC ACID TABLET (FP) PO SCH (10:19)
[2020-10-07] MEDS: NICOTINE 14 MG/24 HOURS TOPICAL PATCH TD SCH (10:19)
[2020-10-07] MEDS: SERTRALINE HCL 50 MG TABLET (FP) PO SCH (10:19)
[2020-10-07] MEDS: PANTOPRAZOLE 20 MG TABLET PO SCH (10:19)
[2020-10-07] MEDS: MELATONIN 5 MG TABLETS PO SCH (21:55)
[2020-10-07] MEDS: THIAMINE HCL 100 MG TABLET (FP) PO SCH (21:55)
[2020-10-07] MEDS: GABAPENTIN 300 MG CAPSULE PO SCH (21:55)
[2020-10-08] MEDS ORDERED: METHADONE HCL 40 MG DISPERSABLE TABLET ONE (06:26)
[2020-10-08] MEDS ORDERED: METHADONE HCL 10 MG TABLET ONE (06:26)
[2020-10-08] MEDS: METHADONE 80 MG, METHADONE 20 MG PO SCH (06:27)
[2020-10-08] MEDS: busPIRone HCL 5 MG TABLET PO PRN (06:27)
[2020-10-08] MEDS: PRENATAL VITAMINS W/ FOLIC ACID TABLET (FP) PO SCH (10:21)
[2020-10-08] MEDS: PANTOPRAZOLE 20 MG TABLET PO SCH (10:21)
[2020-10-08] MEDS: amLODIPine BESYLATE 10 MG TABLET (FP) PO SCH (10:21)
[2020-10-08] MEDS: ASPIRIN 81 MG CHEWABLE TABLETS PO SCH (10:21)
[2020-10-08] MEDS: NICOTINE 14 MG/24 HOURS TOPICAL PATCH TD SCH (10:22)
[2020-10-08] MEDS: SERTRALINE HCL 50 MG TABLET (FP) PO SCH (10:24)
[2020-10-08] MEDS: MELATONIN 5 MG TABLETS PO SCH (21:17)
[2020-10-08] MEDS: THIAMINE HCL 100 MG TABLET (FP) PO SCH (21:17)
[2020-10-08] MEDS: GABAPENTIN 300 MG CAPSULE PO SCH (21:17)
[2020-10-09] MEDS ORDERED: METHADONE HCL 10 MG TABLET ONE (03:20)
[2020-10-09] MEDS ORDERED: METHADONE HCL 40 MG DISPERSABLE TABLET ONE (03:20)
[2020-10-09] MEDS: busPIRone HCL 5 MG TABLET PO PRN ×2 (06:11→21:53)
[2020-10-09] MEDS: METHADONE 80 MG, METHADONE 20 MG PO SCH (06:11)
[2020-10-09 06:55] VITALS: TEMP 97.7
[2020-10-09] MEDS: PRENATAL VITAMINS W/ FOLIC ACID TABLET (FP) PO SCH (10:04)
[2020-10-09] MEDS: amLODIPine BESYLATE 10 MG TABLET (FP) PO SCH (10:04)
[2020-10-09] MEDS: PANTOPRAZOLE 20 MG TABLET PO SCH (10:05)
[2020-10-09] MEDS: NICOTINE 14 MG/24 HOURS TOPICAL PATCH TD SCH (10:05)
[2020-10-09] MEDS: SERTRALINE HCL 50 MG TABLET (FP) PO SCH (10:05)
[2020-10-09] MEDS: ASPIRIN 81 MG CHEWABLE TABLETS PO SCH (10:05)
[2020-10-09] MEDS: GABAPENTIN 300 MG CAPSULE PO SCH (21:52)
[2020-10-09] MEDS: THIAMINE HCL 100 MG TABLET (FP) PO SCH (21:52)
[2020-10-09] MEDS: MELATONIN 5 MG TABLETS PO SCH (21:52)
[2020-10-10] MEDS ORDERED: METHADONE HCL 40 MG DISPERSABLE TABLET ONE (05:00)
[2020-10-10] MEDS ORDERED: METHADONE HCL 10 MG TABLET ONE (05:00)
[2020-10-10] MEDS ORDERED: METHADONE 80 MG, METHADONE 20 MG PO SCH (06:00)
[2020-10-10] MEDS: busPIRone HCL 5 MG TABLET PO PRN (06:14)
[2020-10-10 07:33] VITALS: BP 136/77; PULSE 52
[2020-10-10] MEDS: ASPIRIN 81 MG CHEWABLE TABLETS PO SCH (10:04)
[2020-10-10] MEDS: PRENATAL VITAMINS W/ FOLIC ACID TABLET (FP) PO SCH (10:04)
[2020-10-10] MEDS: amLODIPine BESYLATE 10 MG TABLET (FP) PO SCH (10:04)
[2020-10-10] MEDS: NICOTINE 14 MG/24 HOURS TOPICAL PATCH TD SCH (10:05)
[2020-10-10] MEDS: SERTRALINE HCL 50 MG TABLET (FP) PO SCH (10:05)
[2020-10-10] MEDS: PANTOPRAZOLE 20 MG TABLET PO SCH (10:05)
== END 2020-10-10 10:30 | disposition home or self-care (01) | DRG 772 ==
LOC: YASAS 12:14 → Y5N 16:30
PROVIDERS: ADMIT Allergy & Immunology; ATTEND Allergy & Immunology
PROC: HZ42ZZZ Group Counseling for Substance Abuse Treatment, Cognitive-Behavioral (ICD-10-PCS; principal; 2020-09-25)
DX: F10.20 Alcohol dependence, uncomplicated (principal); F11.20 Opioid dependence, uncomplicated; F14.20 Cocaine dependence, uncomplicated; F13.20 Sedative, hypnotic or anxiolytic dependence, uncomplicated; F12.20 Cannabis dependence, uncomplicated; F17.210 Nicotine dependence, cigarettes, uncomplicated; F41.9 Anxiety disorder, unspecified; F32.9 Major depressive disorder, single episode, unspecified; F43.10 Post-traumatic stress disorder, unspecified; I10 Essential (primary) hypertension; M41.9 Scoliosis, unspecified; B18.2 Chronic viral hepatitis C; G89.29 Other chronic pain; R00.1 Bradycardia, unspecified
CPT/HCPCS: 36415; 71046-TC-FY; 80053; 81003; 84520; 85027; 86780; 93005; 93010; C9803; U0003; U0005

== ENCOUNTER 2021-09-18 13:38 | Inpatient (IN) | payer BC ==
[2021-09-18] MEDS ORDERED: IBUPROFEN 400 MG TABLET (FP) PO PRN (18:00)
[2021-09-18] MEDS ORDERED: MAGNESIUM CITRATE 300 ML BOTTLE PO PRN (18:00)
[2021-09-18] MEDS ORDERED: BISMUTH SUBSALICYLATE 524 MG/30 ML PO PRN (18:00)
[2021-09-18] MEDS ORDERED: hydrOXYzine PAMOATE 25 MG CAPSULE (FP) PO PRN ×2 (18:00→18:43)
[2021-09-18] MEDS ORDERED: MAG HYDROX/AL HYDROX/SIMETH 30 ML UNIT-DOSE CUP PO PRN (18:00)
[2021-09-18] MEDS ORDERED: ACETAMINOPHEN 325 MG TABLET (FP) PO PRN ×2 (18:00)
[2021-09-18] MEDS ORDERED: MELATONIN 5 MG TABLETS PO PRN (18:00)
[2021-09-18] MEDS ORDERED: METHOCARBAMOL 500 MG TABLET PO PRN (18:00)
[2021-09-18] MEDS ORDERED: ONDANSETRON *ODT* 4 MG TABLET SL PRN (18:00)
[2021-09-18] MEDS ORDERED: MENTHOL/PHENOL 1 EACH UD MM PRN (18:00)
[2021-09-18] MEDS ORDERED: LOPERAMIDE HCL 2 MG CAPSULE PO PRN (18:00)
[2021-09-18] MEDS ORDERED: diazePAM 5 MG TABLET PO PRN (18:03)
[2021-09-18 21:23] VITALS: BMI 17.4
[2021-09-18] MEDS ORDERED: diazePAM 5 MG TABLET ONE (21:58)
[2021-09-19] MEDS: diazePAM 5 MG TABLET PO SCH ×4 (03:18→18:13)
[2021-09-19] MEDS: THIAMINE HCL 100 MG TABLET (FP) PO SCH ×2 (03:18→21:41)
[2021-09-19] MEDS ORDERED: diazePAM 5 MG TABLET ONE (05:40)
[2021-09-19] MEDS ORDERED: methaDONE HCL 10 MG TABLET PO SCH (10:00)
[2021-09-19] MEDS ORDERED: methaDONE HCL 10 MG TABLET ONE (11:44)
[2021-09-19] MEDS ORDERED: methaDONE HCL 40 MG DISPERSABLE TABLET ONE (11:44)
[2021-09-19] MEDS: ASPIRIN 81 MG CHEWABLE TABLETS PO SCH (12:05)
[2021-09-19] MEDS: amLODIPine BESYLATE 10 MG TABLET (FP) PO SCH (12:05)
[2021-09-19] MEDS: PRENATAL VITAMINS W/ FOLIC ACID TABLET (FP) PO SCH (12:06)
[2021-09-19] MEDS: PANTOPRAZOLE 20 MG TABLET PO SCH (12:06)
[2021-09-19] MEDS: NICOTINE 7 MG/24 HOURS TOPICAL PATCH TD SCH (12:07)
[2021-09-19 12:13] LABS: HEMATOCRIT 35.8 % (32.4-45.2); HEMOGLOBIN 12.4 GM/dL (10.7-15.3); MCH 34.2 pg (25.7-33.7); MCHC 34.7 g/dl (32.0-36.0); MEAN CELL VOLUME 98.6 fl (80-96); MEAN PLT VOLUME 9.4 fl (7.5-11.1); PLATELET COUNT 215 10^3/uL (134-434); RBC 3.63 M/mm3 (3.60-5.2); RDW 13.9 % (11.6-15.6); WHITE BLOOD COUNT 3.5 K/mm3 (4.0-10.0)
[2021-09-19 12:16] LABS: CALCIUM 8.6 mg/dL (8.5-10.1)
[2021-09-19 12:17] LABS: ALBUMIN 3.3 g/dl (3.4-5.0)
[2021-09-19 12:20] LABS: CREATININE 0.8 mg/dL (0.55-1.3)
[2021-09-19 12:21] LABS: BILIRUBIN,TOTAL 0.6 mg/dL (0.2-1); TOT PROT 7.1 g/dl (6.4-8.2)
[2021-09-20] MEDS ORDERED: diazePAM 5 MG TABLET PO SCH (06:00)
[2021-09-20] MEDS ORDERED: methaDONE HCL 10 MG TABLET ONE (09:18)
[2021-09-20] MEDS ORDERED: methaDONE HCL 40 MG DISPERSABLE TABLET ONE (09:18)
[2021-09-20] MEDS: amLODIPine BESYLATE 10 MG TABLET (FP) PO SCH (10:12)
[2021-09-20] MEDS: PANTOPRAZOLE 20 MG TABLET PO SCH (10:12)
[2021-09-20] MEDS: NICOTINE 7 MG/24 HOURS TOPICAL PATCH TD SCH (10:13)
[2021-09-20] MEDS: PRENATAL VITAMINS W/ FOLIC ACID TABLET (FP) PO SCH (10:13)
[2021-09-20] MEDS: ASPIRIN 81 MG CHEWABLE TABLETS PO SCH (10:14)
[2021-09-20] MEDS ORDERED: PNEUMOC 13-VAL CONJ-DIP CRM/PF 0.5 ML DISP.SYRIN IM ONE (12:00)
[2021-09-20] MEDS ORDERED: FLU VACC QS2021-22(6MOS UP)/PF 60 MCG/0.5 ML SYRINGE IM ONE (12:00)
[2021-09-20] MEDS ORDERED: PNEUMOCOCCAL 23 VACCINE 0.5 ML VIAL IM ONE (12:00)
[2021-09-20] MEDS: THIAMINE HCL 100 MG TABLET (FP) PO SCH (21:33)
[2021-09-21] MEDS ORDERED: diazePAM 5 MG TABLET PO SCH (06:00)
[2021-09-21] MEDS ORDERED: methaDONE HCL 40 MG DISPERSABLE TABLET ONE (06:29)
[2021-09-21] MEDS ORDERED: methaDONE HCL 10 MG TABLET ONE (06:29)
[2021-09-21] MEDS: PRENATAL VITAMINS W/ FOLIC ACID TABLET (FP) PO SCH (10:26)
[2021-09-21] MEDS: PANTOPRAZOLE 20 MG TABLET PO SCH (10:27)
[2021-09-21] MEDS: ASPIRIN 81 MG CHEWABLE TABLETS PO SCH (10:27)
[2021-09-21] MEDS: amLODIPine BESYLATE 10 MG TABLET (FP) PO SCH (10:27)
[2021-09-21] MEDS: NICOTINE 7 MG/24 HOURS TOPICAL PATCH TD SCH (10:27)
[2021-09-21] MEDS: THIAMINE HCL 100 MG TABLET (FP) PO SCH (21:29)
[2021-09-22] MEDS ORDERED: methaDONE HCL 40 MG DISPERSABLE TABLET ONE (04:15)
[2021-09-22] MEDS ORDERED: methaDONE HCL 10 MG TABLET ONE (04:15)
[2021-09-22] MEDS ORDERED: diazePAM 5 MG TABLET PO ONE (06:00)
[2021-09-22] MEDS: PRENATAL VITAMINS W/ FOLIC ACID TABLET (FP) PO SCH (10:30)
[2021-09-22] MEDS: amLODIPine BESYLATE 10 MG TABLET (FP) PO SCH (10:32)
[2021-09-22] MEDS: ASPIRIN 81 MG CHEWABLE TABLETS PO SCH (10:32)
[2021-09-22] MEDS: NICOTINE 7 MG/24 HOURS TOPICAL PATCH TD SCH (10:32)
[2021-09-22] MEDS: PANTOPRAZOLE 20 MG TABLET PO SCH (10:33)
[2021-09-22] MEDS: THIAMINE HCL 100 MG TABLET (FP) PO SCH (21:36)
[2021-09-23 05:08] LABS: SARS-CoV-2 NAA Not Detected (Not Detected)
[2021-09-23] MEDS ORDERED: methaDONE HCL 10 MG TABLET ONE (05:12)
[2021-09-23] MEDS ORDERED: methaDONE HCL 40 MG DISPERSABLE TABLET ONE (05:12)
[2021-09-23] MEDS: amLODIPine BESYLATE 10 MG TABLET (FP) PO SCH (10:28)
[2021-09-23] MEDS: PANTOPRAZOLE 20 MG TABLET PO SCH (10:28)
[2021-09-23] MEDS: NICOTINE 7 MG/24 HOURS TOPICAL PATCH TD SCH (10:28)
[2021-09-23] MEDS: ASPIRIN 81 MG CHEWABLE TABLETS PO SCH (10:28)
[2021-09-23] MEDS: PRENATAL VITAMINS W/ FOLIC ACID TABLET (FP) PO SCH (10:28)
[2021-09-23] MEDS ORDERED: SERTRALINE HCL 50 MG TABLET (FP) PO ONE (12:21)
[2021-09-23] MEDS: hydrOXYzine PAMOATE 25 MG CAPSULE (FP) PO PRN ×2 (14:47→21:43)
[2021-09-23] MEDS: THIAMINE HCL 100 MG TABLET (FP) PO SCH (21:44)
[2021-09-24] MEDS ORDERED: methaDONE HCL 40 MG DISPERSABLE TABLET ONE (03:07)
[2021-09-24] MEDS ORDERED: methaDONE HCL 10 MG TABLET ONE (03:07)
[2021-09-24] MEDS: SERTRALINE HCL 50 MG TABLET (FP) PO SCH (10:36)
[2021-09-24] MEDS: amLODIPine BESYLATE 10 MG TABLET (FP) PO SCH (10:36)
[2021-09-24] MEDS: ASPIRIN 81 MG CHEWABLE TABLETS PO SCH (10:36)
[2021-09-24] MEDS: PRENATAL VITAMINS W/ FOLIC ACID TABLET (FP) PO SCH (10:36)
[2021-09-24] MEDS: NICOTINE 7 MG/24 HOURS TOPICAL PATCH TD SCH (10:36)
[2021-09-24] MEDS: PANTOPRAZOLE 20 MG TABLET PO SCH (10:36)
[2021-09-24] MEDS: hydrOXYzine PAMOATE 25 MG CAPSULE (FP) PO PRN ×2 (10:36→21:56)
[2021-09-24] MEDS: THIAMINE HCL 100 MG TABLET (FP) PO SCH (21:56)
[2021-09-25] MEDS ORDERED: methaDONE HCL 40 MG DISPERSABLE TABLET ONE (03:12)
[2021-09-25] MEDS ORDERED: methaDONE HCL 10 MG TABLET ONE (03:12)
[2021-09-25] MEDS: NICOTINE 7 MG/24 HOURS TOPICAL PATCH TD SCH (10:32)
[2021-09-25] MEDS: hydrOXYzine PAMOATE 25 MG CAPSULE (FP) PO PRN ×2 (10:33→21:37)
[2021-09-25] MEDS: SERTRALINE HCL 50 MG TABLET (FP) PO SCH (10:33)
[2021-09-25] MEDS: amLODIPine BESYLATE 10 MG TABLET (FP) PO SCH (10:33)
[2021-09-25] MEDS: ASPIRIN 81 MG CHEWABLE TABLETS PO SCH (10:33)
[2021-09-25] MEDS: PANTOPRAZOLE 20 MG TABLET PO SCH (10:33)
[2021-09-25] MEDS: PRENATAL VITAMINS W/ FOLIC ACID TABLET (FP) PO SCH (10:34)
[2021-09-25] MEDS: THIAMINE HCL 100 MG TABLET (FP) PO SCH (21:37)
[2021-09-26] MEDS ORDERED: methaDONE HCL 40 MG DISPERSABLE TABLET ONE (06:11)
[2021-09-26] MEDS ORDERED: methaDONE HCL 10 MG TABLET ONE (06:11)
[2021-09-26] MEDS: SERTRALINE HCL 50 MG TABLET (FP) PO SCH (10:22)
[2021-09-26] MEDS: PRENATAL VITAMINS W/ FOLIC ACID TABLET (FP) PO SCH (10:22)
[2021-09-26] MEDS: amLODIPine BESYLATE 10 MG TABLET (FP) PO SCH (10:23)
[2021-09-26] MEDS: PANTOPRAZOLE 20 MG TABLET PO SCH (10:23)
[2021-09-26] MEDS: NICOTINE 7 MG/24 HOURS TOPICAL PATCH TD SCH (10:23)
[2021-09-26] MEDS: ASPIRIN 81 MG CHEWABLE TABLETS PO SCH (10:23)
[2021-09-26] MEDS: hydrOXYzine PAMOATE 25 MG CAPSULE (FP) PO PRN ×2 (10:24→21:37)
[2021-09-26] MEDS: THIAMINE HCL 100 MG TABLET (FP) PO SCH (21:38)
[2021-09-27] MEDS ORDERED: methaDONE HCL 40 MG DISPERSABLE TABLET ONE (04:37)
[2021-09-27] MEDS ORDERED: methaDONE HCL 10 MG TABLET ONE (04:37)
[2021-09-27] MEDS: amLODIPine BESYLATE 10 MG TABLET (FP) PO SCH (10:39)
[2021-09-27] MEDS: PRENATAL VITAMINS W/ FOLIC ACID TABLET (FP) PO SCH (10:39)
[2021-09-27] MEDS: hydrOXYzine PAMOATE 25 MG CAPSULE (FP) PO PRN ×2 (10:40→21:28)
[2021-09-27] MEDS: ASPIRIN 81 MG CHEWABLE TABLETS PO SCH (10:40)
[2021-09-27] MEDS: SERTRALINE HCL 50 MG TABLET (FP) PO SCH (10:40)
[2021-09-27] MEDS: PANTOPRAZOLE 20 MG TABLET PO SCH (10:40)
[2021-09-27] MEDS: NICOTINE 7 MG/24 HOURS TOPICAL PATCH TD SCH (10:41)
[2021-09-27] MEDS: THIAMINE HCL 100 MG TABLET (FP) PO SCH (21:28)
[2021-09-28] MEDS ORDERED: methaDONE HCL 10 MG TABLET ONE (04:18)
[2021-09-28] MEDS ORDERED: methaDONE HCL 40 MG DISPERSABLE TABLET ONE (04:18)
[2021-09-28] MEDS: PANTOPRAZOLE 20 MG TABLET PO SCH (10:20)
[2021-09-28] MEDS: PRENATAL VITAMINS W/ FOLIC ACID TABLET (FP) PO SCH (10:20)
[2021-09-28] MEDS: ASPIRIN 81 MG CHEWABLE TABLETS PO SCH (10:20)
[2021-09-28] MEDS: SERTRALINE HCL 50 MG TABLET (FP) PO SCH (10:20)
[2021-09-28] MEDS: hydrOXYzine PAMOATE 25 MG CAPSULE (FP) PO PRN ×2 (10:20→21:38)
[2021-09-28] MEDS: amLODIPine BESYLATE 10 MG TABLET (FP) PO SCH (10:20)
[2021-09-28] MEDS: NICOTINE 7 MG/24 HOURS TOPICAL PATCH TD SCH (10:21)
[2021-09-28] MEDS: THIAMINE HCL 100 MG TABLET (FP) PO SCH (21:38)
[2021-09-29] MEDS ORDERED: methaDONE HCL 10 MG TABLET ONE (06:04)
[2021-09-29] MEDS ORDERED: methaDONE HCL 40 MG DISPERSABLE TABLET ONE (06:04)
[2021-09-29] MEDS: ASPIRIN 81 MG CHEWABLE TABLETS PO SCH (10:21)
[2021-09-29] MEDS: PRENATAL VITAMINS W/ FOLIC ACID TABLET (FP) PO SCH (10:21)
[2021-09-29] MEDS: SERTRALINE HCL 50 MG TABLET (FP) PO SCH (10:21)
[2021-09-29] MEDS: PANTOPRAZOLE 20 MG TABLET PO SCH (10:22)
[2021-09-29] MEDS: amLODIPine BESYLATE 10 MG TABLET (FP) PO SCH (10:22)
[2021-09-29] MEDS: NICOTINE 7 MG/24 HOURS TOPICAL PATCH TD SCH (10:22)
[2021-09-29] MEDS: hydrOXYzine PAMOATE 25 MG CAPSULE (FP) PO PRN ×2 (10:23→21:27)
[2021-09-29] MEDS: THIAMINE HCL 100 MG TABLET (FP) PO SCH (21:26)
[2021-09-30] MEDS ORDERED: methaDONE HCL 10 MG TABLET ONE (03:40)
[2021-09-30] MEDS ORDERED: methaDONE HCL 40 MG DISPERSABLE TABLET ONE (03:40)
[2021-09-30] MEDS: PRENATAL VITAMINS W/ FOLIC ACID TABLET (FP) PO SCH (10:12)
[2021-09-30] MEDS: SERTRALINE HCL 50 MG TABLET (FP) PO SCH (10:12)
[2021-09-30] MEDS: ASPIRIN 81 MG CHEWABLE TABLETS PO SCH (10:13)
[2021-09-30] MEDS: NICOTINE 7 MG/24 HOURS TOPICAL PATCH TD SCH (10:13)
[2021-09-30] MEDS: PANTOPRAZOLE 20 MG TABLET PO SCH (10:13)
[2021-09-30] MEDS: amLODIPine BESYLATE 10 MG TABLET (FP) PO SCH (10:14)
[2021-09-30] MEDS: hydrOXYzine PAMOATE 25 MG CAPSULE (FP) PO PRN ×2 (10:18→21:33)
[2021-09-30] MEDS: THIAMINE HCL 100 MG TABLET (FP) PO SCH (21:33)
[2021-10-01] MEDS ORDERED: methaDONE HCL 40 MG DISPERSABLE TABLET ONE (05:33)
[2021-10-01] MEDS ORDERED: methaDONE HCL 10 MG TABLET ONE (05:33)
[2021-10-01] MEDS: NICOTINE 7 MG/24 HOURS TOPICAL PATCH TD SCH (10:22)
[2021-10-01] MEDS: PRENATAL VITAMINS W/ FOLIC ACID TABLET (FP) PO SCH (10:22)
[2021-10-01] MEDS: SERTRALINE HCL 50 MG TABLET (FP) PO SCH (10:23)
[2021-10-01] MEDS: amLODIPine BESYLATE 10 MG TABLET (FP) PO SCH (10:23)
[2021-10-01] MEDS: ASPIRIN 81 MG CHEWABLE TABLETS PO SCH (10:23)
[2021-10-01] MEDS: PANTOPRAZOLE 20 MG TABLET PO SCH (10:23)
[2021-10-01] MEDS: hydrOXYzine PAMOATE 25 MG CAPSULE (FP) PO PRN ×2 (10:23→21:33)
[2021-10-01] MEDS: THIAMINE HCL 100 MG TABLET (FP) PO SCH (21:33)
[2021-10-02] MEDS ORDERED: methaDONE HCL 10 MG TABLET ONE (02:51)
[2021-10-02] MEDS ORDERED: methaDONE HCL 40 MG DISPERSABLE TABLET ONE (02:51)
[2021-10-02] MEDS: ASPIRIN 81 MG CHEWABLE TABLETS PO SCH (10:27)
[2021-10-02] MEDS: SERTRALINE HCL 50 MG TABLET (FP) PO SCH (10:27)
[2021-10-02] MEDS: PANTOPRAZOLE 20 MG TABLET PO SCH (10:27)
[2021-10-02] MEDS: amLODIPine BESYLATE 10 MG TABLET (FP) PO SCH (10:27)
[2021-10-02] MEDS: PRENATAL VITAMINS W/ FOLIC ACID TABLET (FP) PO SCH (10:28)
[2021-10-02] MEDS: NICOTINE 7 MG/24 HOURS TOPICAL PATCH TD SCH (10:28)
[2021-10-02] MEDS: hydrOXYzine PAMOATE 25 MG CAPSULE (FP) PO PRN ×2 (10:31→21:29)
[2021-10-02] MEDS: LIDOCAINE 5% TOPICAL PATCH TP SCH (17:17)
[2021-10-02] MEDS: THIAMINE HCL 100 MG TABLET (FP) PO SCH (21:29)
[2021-10-02] MEDS: LIDOCAINE PATCH REMOVAL MC SCH (21:30)
[2021-10-02] MEDS: METHYL SALICYLATE/MENTHOL OINT 30 GM TUBE TP SCH (21:30)
[2021-10-03] MEDS ORDERED: methaDONE HCL 10 MG TABLET ONE (02:35)
[2021-10-03] MEDS ORDERED: methaDONE HCL 40 MG DISPERSABLE TABLET ONE (02:35)
[2021-10-03] MEDS: PRENATAL VITAMINS W/ FOLIC ACID TABLET (FP) PO SCH (10:33)
[2021-10-03] MEDS: ASPIRIN 81 MG CHEWABLE TABLETS PO SCH (10:33)
[2021-10-03] MEDS: amLODIPine BESYLATE 10 MG TABLET (FP) PO SCH (10:33)
[2021-10-03] MEDS: NICOTINE 7 MG/24 HOURS TOPICAL PATCH TD SCH (10:33)
[2021-10-03] MEDS: LIDOCAINE 5% TOPICAL PATCH TP SCH (10:33)
[2021-10-03] MEDS: PANTOPRAZOLE 20 MG TABLET PO SCH (10:33)
[2021-10-03] MEDS: SERTRALINE HCL 50 MG TABLET (FP) PO SCH (10:33)
[2021-10-03] MEDS: hydrOXYzine PAMOATE 25 MG CAPSULE (FP) PO PRN ×2 (10:34→21:26)
[2021-10-03] MEDS: METHYL SALICYLATE/MENTHOL OINT 30 GM TUBE TP SCH (21:26)
[2021-10-03] MEDS: LIDOCAINE PATCH REMOVAL MC SCH (21:26)
[2021-10-03] MEDS: THIAMINE HCL 100 MG TABLET (FP) PO SCH (21:26)
[2021-10-04] MEDS ORDERED: methaDONE HCL 10 MG TABLET ONE (05:00)
[2021-10-04] MEDS ORDERED: methaDONE HCL 40 MG DISPERSABLE TABLET ONE (05:00)
[2021-10-04] MEDS: METHOCARBAMOL 500 MG TABLET PO PRN ×2 (10:30→21:38)
[2021-10-04] MEDS: amLODIPine BESYLATE 10 MG TABLET (FP) PO SCH (10:31)
[2021-10-04] MEDS: SERTRALINE HCL 50 MG TABLET (FP) PO SCH (10:31)
[2021-10-04] MEDS: ASPIRIN 81 MG CHEWABLE TABLETS PO SCH (10:31)
[2021-10-04] MEDS: PANTOPRAZOLE 20 MG TABLET PO SCH (10:31)
[2021-10-04] MEDS: PRENATAL VITAMINS W/ FOLIC ACID TABLET (FP) PO SCH (11:17)
[2021-10-04] MEDS: NICOTINE 7 MG/24 HOURS TOPICAL PATCH TD SCH (11:17)
[2021-10-04] MEDS: LIDOCAINE 5% TOPICAL PATCH TP SCH (11:17)
[2021-10-04] MEDS: METHYL SALICYLATE/MENTHOL OINT 30 GM TUBE TP SCH (21:37)
[2021-10-04] MEDS: LIDOCAINE PATCH REMOVAL MC SCH (21:38)
[2021-10-04] MEDS: hydrOXYzine PAMOATE 25 MG CAPSULE (FP) PO PRN (21:38)
[2021-10-04] MEDS: THIAMINE HCL 100 MG TABLET (FP) PO SCH (21:38)
[2021-10-05] MEDS ORDERED: methaDONE HCL 10 MG TABLET ONE (07:19)
[2021-10-05] MEDS ORDERED: methaDONE HCL 40 MG DISPERSABLE TABLET ONE (07:19)
[2021-10-05] MEDS: PRENATAL VITAMINS W/ FOLIC ACID TABLET (FP) PO SCH (10:15)
[2021-10-05] MEDS: LIDOCAINE 5% TOPICAL PATCH TP SCH (10:15)
[2021-10-05] MEDS: NICOTINE 7 MG/24 HOURS TOPICAL PATCH TD SCH (10:15)
[2021-10-05] MEDS: ASPIRIN 81 MG CHEWABLE TABLETS PO SCH (10:15)
[2021-10-05] MEDS: SERTRALINE HCL 50 MG TABLET (FP) PO SCH (10:16)
[2021-10-05] MEDS: PANTOPRAZOLE 20 MG TABLET PO SCH (10:16)
[2021-10-05] MEDS: hydrOXYzine PAMOATE 25 MG CAPSULE (FP) PO PRN ×2 (10:16→21:46)
[2021-10-05] MEDS: amLODIPine BESYLATE 10 MG TABLET (FP) PO SCH (10:16)
[2021-10-05] MEDS: METHOCARBAMOL 500 MG TABLET PO PRN ×2 (10:17→21:46)
[2021-10-05] MEDS: METHYL SALICYLATE/MENTHOL OINT 30 GM TUBE TP SCH (21:46)
[2021-10-05] MEDS: THIAMINE HCL 100 MG TABLET (FP) PO SCH (21:46)
[2021-10-05] MEDS: LIDOCAINE PATCH REMOVAL MC SCH (21:46)
[2021-10-06] MEDS ORDERED: methaDONE HCL 40 MG DISPERSABLE TABLET ONE (03:13)
[2021-10-06] MEDS ORDERED: methaDONE HCL 10 MG TABLET ONE (03:13)
[2021-10-06] MEDS: METHOCARBAMOL 500 MG TABLET PO PRN ×2 (06:10→21:40)
[2021-10-06] MEDS: ASPIRIN 81 MG CHEWABLE TABLETS PO SCH (10:33)
[2021-10-06] MEDS: amLODIPine BESYLATE 10 MG TABLET (FP) PO SCH (10:33)
[2021-10-06] MEDS: SERTRALINE HCL 50 MG TABLET (FP) PO SCH (10:34)
[2021-10-06] MEDS: PRENATAL VITAMINS W/ FOLIC ACID TABLET (FP) PO SCH (10:34)
[2021-10-06] MEDS: PANTOPRAZOLE 20 MG TABLET PO SCH (10:34)
[2021-10-06] MEDS: NICOTINE 7 MG/24 HOURS TOPICAL PATCH TD SCH (10:34)
[2021-10-06] MEDS: LIDOCAINE 5% TOPICAL PATCH TP SCH (10:34)
[2021-10-06] MEDS: hydrOXYzine PAMOATE 25 MG CAPSULE (FP) PO PRN ×2 (10:35→21:40)
[2021-10-06] MEDS: METHYL SALICYLATE/MENTHOL OINT 30 GM TUBE TP SCH (21:40)
[2021-10-06] MEDS: THIAMINE HCL 100 MG TABLET (FP) PO SCH (21:40)
[2021-10-06] MEDS: LIDOCAINE PATCH REMOVAL MC SCH (21:40)
[2021-10-07] MEDS ORDERED: methaDONE HCL 10 MG TABLET ONE (03:47)
[2021-10-07] MEDS ORDERED: methaDONE HCL 40 MG DISPERSABLE TABLET ONE (03:47)
[2021-10-07] MEDS: PRENATAL VITAMINS W/ FOLIC ACID TABLET (FP) PO SCH (10:37)
[2021-10-07] MEDS: SERTRALINE HCL 50 MG TABLET (FP) PO SCH (10:37)
[2021-10-07] MEDS: NICOTINE 7 MG/24 HOURS TOPICAL PATCH TD SCH (10:37)
[2021-10-07] MEDS: ASPIRIN 81 MG CHEWABLE TABLETS PO SCH (10:37)
[2021-10-07] MEDS: hydrOXYzine PAMOATE 25 MG CAPSULE (FP) PO PRN ×2 (10:38→21:34)
[2021-10-07] MEDS: LIDOCAINE 5% TOPICAL PATCH TP SCH (10:38)
[2021-10-07] MEDS: PANTOPRAZOLE 20 MG TABLET PO SCH (10:38)
[2021-10-07] MEDS: amLODIPine BESYLATE 10 MG TABLET (FP) PO SCH (10:38)
[2021-10-07] MEDS: METHOCARBAMOL 500 MG TABLET PO PRN ×2 (10:39→21:34)
[2021-10-07] MEDS: THIAMINE HCL 100 MG TABLET (FP) PO SCH (21:34)
[2021-10-07] MEDS: LIDOCAINE PATCH REMOVAL MC SCH (21:34)
[2021-10-07] MEDS: METHYL SALICYLATE/MENTHOL OINT 30 GM TUBE TP SCH (21:44)
[2021-10-08] MEDS ORDERED: methaDONE HCL 10 MG TABLET ONE (05:20)
[2021-10-08] MEDS ORDERED: methaDONE HCL 40 MG DISPERSABLE TABLET ONE (05:21)
[2021-10-08] MEDS: PRENATAL VITAMINS W/ FOLIC ACID TABLET (FP) PO SCH (10:18)
[2021-10-08] MEDS: hydrOXYzine PAMOATE 25 MG CAPSULE (FP) PO PRN ×2 (10:19→21:45)
[2021-10-08] MEDS: LIDOCAINE 5% TOPICAL PATCH TP SCH (10:19)
[2021-10-08] MEDS: ASPIRIN 81 MG CHEWABLE TABLETS PO SCH (10:19)
[2021-10-08] MEDS: PANTOPRAZOLE 20 MG TABLET PO SCH (10:19)
[2021-10-08] MEDS: SERTRALINE HCL 50 MG TABLET (FP) PO SCH (10:19)
[2021-10-08] MEDS: amLODIPine BESYLATE 10 MG TABLET (FP) PO SCH (10:19)
[2021-10-08] MEDS: NICOTINE 7 MG/24 HOURS TOPICAL PATCH TD SCH (10:19)
[2021-10-08] MEDS: METHOCARBAMOL 500 MG TABLET PO PRN ×2 (10:21→21:45)
[2021-10-08] MEDS: LIDOCAINE PATCH REMOVAL MC SCH (21:45)
[2021-10-08] MEDS: METHYL SALICYLATE/MENTHOL OINT 30 GM TUBE TP SCH (21:45)
[2021-10-08] MEDS: THIAMINE HCL 100 MG TABLET (FP) PO SCH (21:45)
[2021-10-09] MEDS ORDERED: methaDONE HCL 40 MG DISPERSABLE TABLET ONE (04:13)
[2021-10-09] MEDS ORDERED: methaDONE HCL 10 MG TABLET ONE (04:13)
[2021-10-09] MEDS: amLODIPine BESYLATE 10 MG TABLET (FP) PO SCH (10:33)
[2021-10-09] MEDS: SERTRALINE HCL 50 MG TABLET (FP) PO SCH (10:33)
[2021-10-09] MEDS: NICOTINE 7 MG/24 HOURS TOPICAL PATCH TD SCH (10:34)
[2021-10-09] MEDS: LIDOCAINE 5% TOPICAL PATCH TP SCH (10:34)
[2021-10-09] MEDS: ASPIRIN 81 MG CHEWABLE TABLETS PO SCH (10:34)
[2021-10-09] MEDS: PRENATAL VITAMINS W/ FOLIC ACID TABLET (FP) PO SCH (10:34)
[2021-10-09] MEDS: PANTOPRAZOLE 20 MG TABLET PO SCH (10:34)
[2021-10-09] MEDS: hydrOXYzine PAMOATE 25 MG CAPSULE (FP) PO PRN ×2 (10:35→21:40)
[2021-10-09] MEDS: METHOCARBAMOL 500 MG TABLET PO PRN ×2 (10:35→21:40)
[2021-10-09] MEDS: THIAMINE HCL 100 MG TABLET (FP) PO SCH (21:40)
[2021-10-09] MEDS: LIDOCAINE PATCH REMOVAL MC SCH (21:41)
[2021-10-09] MEDS: METHYL SALICYLATE/MENTHOL OINT 30 GM TUBE TP SCH (21:41)
[2021-10-10] MEDS ORDERED: methaDONE HCL 10 MG TABLET ONE (03:55)
[2021-10-10] MEDS ORDERED: methaDONE HCL 40 MG DISPERSABLE TABLET ONE (03:55)
[2021-10-10] MEDS: PANTOPRAZOLE 20 MG TABLET PO SCH (10:20)
[2021-10-10] MEDS: amLODIPine BESYLATE 10 MG TABLET (FP) PO SCH (10:20)
[2021-10-10] MEDS: ASPIRIN 81 MG CHEWABLE TABLETS PO SCH (10:20)
[2021-10-10] MEDS: PRENATAL VITAMINS W/ FOLIC ACID TABLET (FP) PO SCH (10:20)
[2021-10-10] MEDS: LIDOCAINE 5% TOPICAL PATCH TP SCH (10:21)
[2021-10-10] MEDS: SERTRALINE HCL 50 MG TABLET (FP) PO SCH (10:21)
[2021-10-10] MEDS: NICOTINE 7 MG/24 HOURS TOPICAL PATCH TD SCH (10:21)
[2021-10-10] MEDS: METHOCARBAMOL 500 MG TABLET PO PRN ×2 (10:22→21:29)
[2021-10-10] MEDS: hydrOXYzine PAMOATE 25 MG CAPSULE (FP) PO PRN ×2 (10:22→21:29)
[2021-10-10] MEDS: THIAMINE HCL 100 MG TABLET (FP) PO SCH (21:29)
[2021-10-10] MEDS: METHYL SALICYLATE/MENTHOL OINT 30 GM TUBE TP SCH (21:31)
[2021-10-10] MEDS: LIDOCAINE PATCH REMOVAL MC SCH (21:33)
[2021-10-11] MEDS ORDERED: methaDONE HCL 10 MG TABLET ONE (06:20)
[2021-10-11] MEDS ORDERED: methaDONE HCL 40 MG DISPERSABLE TABLET ONE (06:20)
[2021-10-11] MEDS: amLODIPine BESYLATE 10 MG TABLET (FP) PO SCH (10:35)
[2021-10-11] MEDS: METHOCARBAMOL 500 MG TABLET PO PRN ×2 (10:35→21:54)
[2021-10-11] MEDS: PRENATAL VITAMINS W/ FOLIC ACID TABLET (FP) PO SCH (10:35)
[2021-10-11] MEDS: SERTRALINE HCL 50 MG TABLET (FP) PO SCH (10:35)
[2021-10-11] MEDS: PANTOPRAZOLE 20 MG TABLET PO SCH (10:35)
[2021-10-11] MEDS: ASPIRIN 81 MG CHEWABLE TABLETS PO SCH (10:36)
[2021-10-11] MEDS: hydrOXYzine PAMOATE 25 MG CAPSULE (FP) PO PRN ×2 (10:36→21:54)
[2021-10-11] MEDS: LIDOCAINE 5% TOPICAL PATCH TP SCH (10:37)
[2021-10-11] MEDS: NICOTINE 7 MG/24 HOURS TOPICAL PATCH TD SCH (10:37)
[2021-10-11] MEDS: THIAMINE HCL 100 MG TABLET (FP) PO SCH (21:54)
[2021-10-11] MEDS: METHYL SALICYLATE/MENTHOL OINT 30 GM TUBE TP SCH (21:54)
[2021-10-11] MEDS: LIDOCAINE PATCH REMOVAL MC SCH (21:55)
[2021-10-12] MEDS ORDERED: methaDONE HCL 10 MG TABLET ONE (05:52)
[2021-10-12] MEDS ORDERED: methaDONE HCL 40 MG DISPERSABLE TABLET ONE (05:52)
[2021-10-12] MEDS ORDERED: methaDONE HCL 10 MG TABLET PO SCH (06:00)
[2021-10-12] MEDS: ASPIRIN 81 MG CHEWABLE TABLETS PO SCH (10:26)
[2021-10-12] MEDS: METHOCARBAMOL 500 MG TABLET PO PRN ×2 (10:26→22:04)
[2021-10-12] MEDS: PRENATAL VITAMINS W/ FOLIC ACID TABLET (FP) PO SCH (10:26)
[2021-10-12] MEDS: amLODIPine BESYLATE 10 MG TABLET (FP) PO SCH (10:26)
[2021-10-12] MEDS: PANTOPRAZOLE 20 MG TABLET PO SCH (10:26)
[2021-10-12] MEDS: SERTRALINE HCL 50 MG TABLET (FP) PO SCH (10:27)
[2021-10-12] MEDS: LIDOCAINE 5% TOPICAL PATCH TP SCH (10:27)
[2021-10-12] MEDS: NICOTINE 7 MG/24 HOURS TOPICAL PATCH TD SCH (10:27)
[2021-10-12] MEDS: NICOTINE 10 MG CARTRIDGE (INHALER) IH PRN (19:00)
[2021-10-12] MEDS: METHYL SALICYLATE/MENTHOL OINT 30 GM TUBE TP SCH (22:03)
[2021-10-12] MEDS: THIAMINE HCL 100 MG TABLET (FP) PO SCH (22:03)
[2021-10-12] MEDS: LIDOCAINE PATCH REMOVAL MC SCH (22:03)
[2021-10-12] MEDS: hydrOXYzine PAMOATE 25 MG CAPSULE (FP) PO PRN (22:03)
[2021-10-13] MEDS ORDERED: methaDONE HCL 40 MG DISPERSABLE TABLET ONE (05:22)
[2021-10-13] MEDS ORDERED: methaDONE HCL 10 MG TABLET ONE (05:22)
[2021-10-13] MEDS: amLODIPine BESYLATE 10 MG TABLET (FP) PO SCH (10:35)
[2021-10-13] MEDS: PRENATAL VITAMINS W/ FOLIC ACID TABLET (FP) PO SCH (10:35)
[2021-10-13] MEDS: ASPIRIN 81 MG CHEWABLE TABLETS PO SCH (10:35)
[2021-10-13] MEDS: SERTRALINE HCL 50 MG TABLET (FP) PO SCH (10:35)
[2021-10-13] MEDS: LIDOCAINE 5% TOPICAL PATCH TP SCH (10:36)
[2021-10-13] MEDS: NICOTINE 7 MG/24 HOURS TOPICAL PATCH TD SCH (10:36)
[2021-10-13] MEDS: PANTOPRAZOLE 20 MG TABLET PO SCH (10:36)
[2021-10-13] MEDS: NICOTINE 10 MG CARTRIDGE (INHALER) IH PRN (10:37)
[2021-10-13] MEDS: METHOCARBAMOL 500 MG TABLET PO PRN ×2 (10:37→21:37)
[2021-10-13] MEDS: hydrOXYzine PAMOATE 25 MG CAPSULE (FP) PO PRN ×2 (10:37→21:37)
[2021-10-13] MEDS: THIAMINE HCL 100 MG TABLET (FP) PO SCH (21:37)
[2021-10-13] MEDS: LIDOCAINE PATCH REMOVAL MC SCH (21:38)
[2021-10-13] MEDS: METHYL SALICYLATE/MENTHOL OINT 30 GM TUBE TP SCH (21:38)
[2021-10-14] MEDS ORDERED: methaDONE HCL 10 MG TABLET ONE (03:57)
[2021-10-14] MEDS ORDERED: methaDONE HCL 40 MG DISPERSABLE TABLET ONE (03:57)
[2021-10-14] MEDS: SERTRALINE HCL 50 MG TABLET (FP) PO SCH (10:14)
[2021-10-14] MEDS: PRENATAL VITAMINS W/ FOLIC ACID TABLET (FP) PO SCH (10:14)
[2021-10-14] MEDS: ASPIRIN 81 MG CHEWABLE TABLETS PO SCH (10:14)
[2021-10-14] MEDS: METHOCARBAMOL 500 MG TABLET PO PRN ×2 (10:14→21:31)
[2021-10-14] MEDS: amLODIPine BESYLATE 10 MG TABLET (FP) PO SCH (10:14)
[2021-10-14] MEDS: hydrOXYzine PAMOATE 25 MG CAPSULE (FP) PO PRN ×2 (10:14→21:30)
[2021-10-14] MEDS: PANTOPRAZOLE 20 MG TABLET PO SCH (10:14)
[2021-10-14] MEDS: NICOTINE 10 MG CARTRIDGE (INHALER) IH PRN ×2 (10:15→21:31)
[2021-10-14] MEDS: LIDOCAINE 5% TOPICAL PATCH TP SCH (10:17)
[2021-10-14] MEDS: NICOTINE 7 MG/24 HOURS TOPICAL PATCH TD SCH (10:17)
[2021-10-14] MEDS: THIAMINE HCL 100 MG TABLET (FP) PO SCH (21:30)
[2021-10-14] MEDS: METHYL SALICYLATE/MENTHOL OINT 30 GM TUBE TP SCH (21:30)
[2021-10-14] MEDS: LIDOCAINE PATCH REMOVAL MC SCH (21:30)
[2021-10-15] MEDS ORDERED: methaDONE HCL 40 MG DISPERSABLE TABLET ONE (05:37)
[2021-10-15] MEDS ORDERED: methaDONE HCL 10 MG TABLET ONE (05:37)
[2021-10-15] MEDS: LIDOCAINE 5% TOPICAL PATCH TP SCH (10:06)
[2021-10-15] MEDS: hydrOXYzine PAMOATE 25 MG CAPSULE (FP) PO PRN ×2 (10:06→21:45)
[2021-10-15] MEDS: SERTRALINE HCL 50 MG TABLET (FP) PO SCH (10:06)
[2021-10-15] MEDS: NICOTINE 7 MG/24 HOURS TOPICAL PATCH TD SCH (10:06)
[2021-10-15] MEDS: amLODIPine BESYLATE 10 MG TABLET (FP) PO SCH (10:06)
[2021-10-15] MEDS: PANTOPRAZOLE 20 MG TABLET PO SCH (10:06)
[2021-10-15] MEDS: ASPIRIN 81 MG CHEWABLE TABLETS PO SCH (10:06)
[2021-10-15] MEDS: PRENATAL VITAMINS W/ FOLIC ACID TABLET (FP) PO SCH (10:06)
[2021-10-15] MEDS: METHOCARBAMOL 500 MG TABLET PO PRN ×2 (10:06→21:45)
[2021-10-15] MEDS: MAGNESIUM HYDROX 2400MG/30ML ORAL SUSPENSION 30 ML CUP PO PRN (12:08)
[2021-10-15] MEDS: NICOTINE 10 MG CARTRIDGE (INHALER) IH PRN (17:54)
[2021-10-15] MEDS: LIDOCAINE PATCH REMOVAL MC SCH (21:45)
[2021-10-15] MEDS: THIAMINE HCL 100 MG TABLET (FP) PO SCH (21:45)
[2021-10-15] MEDS: METHYL SALICYLATE/MENTHOL OINT 30 GM TUBE TP SCH (21:46)
[2021-10-16] MEDS ORDERED: methaDONE HCL 10 MG TABLET ONE (06:25)
[2021-10-16] MEDS ORDERED: methaDONE HCL 40 MG DISPERSABLE TABLET ONE (06:25)
[2021-10-16] MEDS: NICOTINE 10 MG CARTRIDGE (INHALER) IH PRN (10:45)
[2021-10-16] MEDS: METHOCARBAMOL 500 MG TABLET PO PRN ×2 (10:45→21:38)
[2021-10-16] MEDS: PRENATAL VITAMINS W/ FOLIC ACID TABLET (FP) PO SCH (10:45)
[2021-10-16] MEDS: amLODIPine BESYLATE 10 MG TABLET (FP) PO SCH (10:45)
[2021-10-16] MEDS: LIDOCAINE 5% TOPICAL PATCH TP SCH (10:46)
[2021-10-16] MEDS: SERTRALINE HCL 50 MG TABLET (FP) PO SCH (10:46)
[2021-10-16] MEDS: hydrOXYzine PAMOATE 25 MG CAPSULE (FP) PO PRN ×2 (10:46→21:39)
[2021-10-16] MEDS: ASPIRIN 81 MG CHEWABLE TABLETS PO SCH (10:46)
[2021-10-16] MEDS: NICOTINE 7 MG/24 HOURS TOPICAL PATCH TD SCH (10:46)
[2021-10-16] MEDS: PANTOPRAZOLE 20 MG TABLET PO SCH (10:46)
[2021-10-16] MEDS: MAGNESIUM HYDROX 2400MG/30ML ORAL SUSPENSION 30 ML CUP PO PRN (10:47)
[2021-10-16] MEDS: THIAMINE HCL 100 MG TABLET (FP) PO SCH (21:38)
[2021-10-16] MEDS: LIDOCAINE PATCH REMOVAL MC SCH (21:39)
[2021-10-16] MEDS: METHYL SALICYLATE/MENTHOL OINT 30 GM TUBE TP SCH (21:39)
[2021-10-17] MEDS ORDERED: methaDONE HCL 10 MG TABLET ONE (03:49)
[2021-10-17] MEDS ORDERED: methaDONE HCL 40 MG DISPERSABLE TABLET ONE (03:49)
[2021-10-17 07:19] VITALS: TEMP 96.8
[2021-10-17] MEDS: PRENATAL VITAMINS W/ FOLIC ACID TABLET (FP) PO SCH (09:41)
[2021-10-17] MEDS: SERTRALINE HCL 50 MG TABLET (FP) PO SCH (09:42)
[2021-10-17] MEDS: PANTOPRAZOLE 20 MG TABLET PO SCH (09:42)
[2021-10-17] MEDS: amLODIPine BESYLATE 10 MG TABLET (FP) PO SCH (09:42)
[2021-10-17] MEDS: ASPIRIN 81 MG CHEWABLE TABLETS PO SCH (09:42)
[2021-10-17] MEDS: hydrOXYzine PAMOATE 25 MG CAPSULE (FP) PO PRN (09:44)
[2021-10-17] MEDS: METHOCARBAMOL 500 MG TABLET PO PRN (09:44)
[2021-10-17 11:02] VITALS: BP 124/68; PULSE 62
[2021-10-17] MEDS: LIDOCAINE 5% TOPICAL PATCH TP SCH (11:07)
[2021-10-17] MEDS: NICOTINE 7 MG/24 HOURS TOPICAL PATCH TD SCH (11:07)
== END 2021-10-17 10:25 | disposition home or self-care (01) | DRG 772 ==
LOC: YASAS 13:38 → Y5N 09-19 11:52
PROVIDERS: ADMIT Allergy & Immunology; ATTEND Allergy & Immunology
PROC: HZ42ZZZ Group Counseling for Substance Abuse Treatment, Cognitive-Behavioral (ICD-10-PCS; principal; 2021-09-19)
DX: F10.20 Alcohol dependence, uncomplicated (principal); F11.20 Opioid dependence, uncomplicated; F14.20 Cocaine dependence, uncomplicated; F12.20 Cannabis dependence, uncomplicated; F17.210 Nicotine dependence, cigarettes, uncomplicated; F19.280 Other psychoactive substance dependence with psychoactive substance-induced anxiety disorder; F19.282 Other psychoactive substance dependence with psychoactive substance-induced sleep disorder; F19.24 Other psychoactive substance dependence with psychoactive substance-induced mood disorder; F41.8 Other specified anxiety disorders; F32.A Depression, unspecified; F43.10 Post-traumatic stress disorder, unspecified; I10 Essential (primary) hypertension; G89.4 Chronic pain syndrome; M41.9 Scoliosis, unspecified; Z86.19 Personal history of other infectious and parasitic diseases; Z91.410 Personal history of adult physical and sexual abuse
CPT/HCPCS: 36415; 80053; 85027; 86780; 87811; 90686; 90732; C9803-CS; G0008; G0009; U0003; U0005